=== PATIENT | female | born 1985 | race African-American/Black ===

== ENCOUNTER 2020-09-27 07:05 | Emergency (ER) | payer OTHER, SELFPAY ==
--- NOTE | ~2020-09-27 | US_ITS ---
EXAMINATION: US pelvic complete w TV DATE: 09/27/2020 10:34 INDICATION: Lower abdomen pain and vaginal bleeding for 10 months. Hormone shot.. Comparison:Lower abdominal pain and cramping TECHNIQUE: Multiple transabdominal and endovaginal sonographic images of the pelvis performed. FINDINGS: The uterus measures 10.3 x 5.8 x 3.6 cm. Uterus is retroflexed. There is a small uterine fi broid measuring 2.1 cm. The endometrial complex measures 4 mm. The right ovary measures 3.2 x 1.8 x 2.2 cm and the left ovary measures 3.7 x 1.8 x 1.8 cm. There ar e small follicles in each ovary. Normal doppler signal in both ovaries. There is free fluid in the pelvis, physiologic. There are no abnormal masses seen on either side. IMPRESSION: 1. Small uterine fibroid measuring 2.1 cm. Reviewed, dictated and finalized at location A.
[2020-09-27 07:19] VITALS: BP 138/80; PULSE 86; RESP 18; TEMP 36.2; O2SAT 99
--- NOTE | 2020-09-27 07:21 | ED.GENADULT ---
HPI - General Adult General Chief complaint: Abdominal Pain Stated complaint: Lower ABD Pain Time Seen by Provider: 09/27/20 07:20 Source: patient Mode of arrival: ambulatory Limitations: no limitations History of Present Illness HPI narrative: Patient is a 35-year-old female who presented for evaluation of lower abdominal pain. Pain described as aching, at times sharp in nature. States that the pain began suddenly yesterday. Located in the lower abdomen without radiation to the back. No associated dysuria. Patient reports that she has been on the Depo-Provera injections for control has had monthly spotting/bleeding. Patient states she is currently menstruating. She denies fever, chills, nausea or vomiting. No dysuria or hematuria. She has not taken any medication for the pain. No recent intercourse. No history of sexual transmitted infection. No other vaginal discharge. Denies chest pain or shortness of breath. Related Data Home Medications Medication Instructions Recorded Confirmed No Home Medications 09/27/20 09/27/20 Allergies Allergy/AdvReac Type Severity Reaction Status Date / Time No Known Allergies Allergy Verified 09/27/20 07:40 Review of Systems Review of Systems: Narrative: CONSTITUTIONAL: Denies fever, chills, or sweats. EYES: Denies visual changes, redness, or discharge. ENT: Denies rhinorrhea, congestion, sore throat, or otalgia. CARDIOVASCULAR: Denies chest pain, palpitations, or edema. RESPIRATORY: Denies cough or dyspnea. GASTROINTESTINAL: Reports lower abdominal pain, denies nausea, vomiting, diarrhea or constipation GENITOURINARY: Denies dysuria or hematuria. Reports light vaginal bleeding. SKIN: Denies rash or itching. MUSCULOSKELETAL: Denies back pain, joint pain, or myalgia. NEUROLOGIC: Denies headache, numbness, or weakness. COUNT INCLUDES THE [facility] Social History Social History (Updated 09/27/20 @ 12:24 by Shabana Smith MD) Smoking status: Current every day smoker Tobacco type: cigars Alcohol intake: never Substance use: never Gender identity (if verbalized by the patient): Female Exam Narrative: Exam Narrative: GENERAL: Awake, alert, conversant HEAD: Normocephalic, atraumatic. EYES: PERRLA and EOMI. ENT: Nares clear, no rhinorrhea or epistaxis. Mucous membranes moist. NECK: Supple. CHEST: No respiratory distress, breathing even and non labored HEART: Regular rate, sinus rhythm ABDOMEN:Non distended, mild tender in the right lower quadrant without rebound or guarding, no ecchymoses, no right upper quadrant or epigastric tenderness EXTREMITIES: Normal range of motion. No edema. SKIN: Warm, dry, no rash. NEURO:No focal deficits. Alert and oriented x3 Course Vital Signs Vital signs: Vital Signs Temperature 36.2 C L 09/27/20 07:19 Pulse Rate 86 09/27/20 07:19 Respiratory Rate 18 09/27/20 07:19 Blood Pressure 138/80 09/27/20 07:19 Pulse Oximetry 99 09/27/20 07:19 Temperature 36.2 C L 09/27/20 07:19 Pulse Rate 74 09/27/20 09:22 Respiratory Rate 16 09/27/20 09:22 Blood Pressure 105/68 09/27/20 09:22 Pulse Oximetry 100 09/27/20 09:22 Medical Decision Making MDM Narrative Medical decision making narrative: Patient presenting for evaluation of lower abdominal pain. Patient currently menstruating, the seems to be symptomatic with her menstrual cycles. On exam, patient's abdomen is soft without significant pain or signs of surgical abdomen on serial exams. Lab and imaging evaluations are reviewed and patient is felt to be a reasonable candidate for outpatient management. Patient does have uterine fibroid present. No leukocytosis. No acute kidney injury or electrolyte derangement. No anemia. No urinary tract infection. At this point, given no recurrent pain at the time of assessment, patient declining all pain medications. I did advise patient have JUNIOR ADMINISTRATIVE ASSISTANT follow-up, she may benefit from other contraception given she has not had good resu
[2020-09-27 07:39] LABS: Basophils Percent Auto 0.4 % (0.2-1.2); Eosinophils Percent Auto 0.4 % (0-4.4); Hemoglobin 13.1 g/dL (12.0-15.0); Immature Granulocyte Absolute 0.03 K/mm3 (0.00-0.031); Immature Granulocyte Percent A 0.3 % (0-0.5); Lymphocytes Absolute Auto 2.93 K/mm3 (0.9-3.2); Lymphocytes Percent Auto 27.5 % (18.3-44.2); Mean Corpuscular Hemoglobin 28.5 pg (26-34); Mean Corpuscular Volume 89.3 fl (80-100); Mean Platelet Volume 9.4 fl (7.4-10.4); Monocytes Absolute Auto 0.7 K/mm3 (0.1-0.6); Monocytes Percent Auto 6.2 % (2.6-8.5); Neutrophils Absolute Auto 6.9 K/mm3 (1.3-6.7); Neutrophils Percent Auto 65.2 % (45.5-73.1); Platelet Count Result 223 k/mm3 (150-375); Red Blood Count 4.59 M/mm3 (4.2-5.4); Red Cell Distribution Width 13.1 % (11.5-14.5); White Blood Count 10.6 K/mm3 (4.5-10.0)
[2020-09-27 07:49] LABS: Add Urine Microscopic? YES; Alanine Aminotransferase 11 U/L (4-35); Albumin Level 4.3 g/dL (3.5-5.1); Alkaline Phosphatase 38 U/L (38-126); Anion Gap 9 mmol/L (8-16); Appearance Urine Clear (Clear); Aspartate Amino Transferase 19 U/L (14-36); Bilirubin Urine Negative (Negative); Bilirubin,Total 0.4 mg/dL (0.2-1.3); Blood Urea Nitrogen 8 mg/dL (7-17); Blood Urine 2+ (Negative); Calcium 9.4 mg/dL (8.4-10.2); Carbon Dioxide 25 mmol/L (22-30); Chloride 108 mmol/L (98-107); Color Urine Yellow (Yellow); Estimated CRCL calculation 103 ml/min; Estimated Glomerular Filt Rate > 60; Glucose 81 mg/dL (65-105); Glucose Urine UA Negative (Negative); Ketones Urine Negative (Negative); Leukocyte Esterase Ur Negative LEU/UL (Negative); Lipase 48 U/L (23-300); Mucus Urine Rare /lpf; Nitrate Urine Negative (Negative); Potassium 4.2 mmol/L (3.4-5.0); Protein Urine Negative (Negative); Sodium 142 mmol/L (137-145); Squamous Epithelial Cell Urine Few /hpf (Few); WBC Urine 0-3 /hpf
[2020-09-27 09:22] VITALS: BP 105/68; PULSE 74; RESP 16; O2SAT 100
[2020-09-27] MEDS: SODIUM CHLORIDE 0.9% IV 1,000 ML 999 ML IV CONT (09:30)
[2020-09-27 12:38] VITALS: BP 110/81; PULSE 74; RESP 18; O2SAT 100
--- NOTE | 2020-10-07 14:12 | PC.NURSE ---
LATE ENTRY This note is being entered to document information to the patient's record. The following information was omitted on [10/07/2020], by [Daisy Mario NS stopped on 09/27/20 at 1030 AM. IV acetaminophen stopped at 1004 AM].
== END 2020-09-27 12:39 | disposition home or self-care (01) ==
PROVIDERS: Emergency Provider Emergency Medicine; PCP Physician Assistant
DX: D25.9 Leiomyoma of uterus, unspecified (principal); F17.290 Nicotine dependence, other tobacco product, uncomplicated
CPT/HCPCS: 36415; 76830; 76856; 80053; 81001; 81025; 83690; 85025; 96361; 96374; 99284; J0131; J2270; J2405; J7030

== ENCOUNTER 2022-05-14 06:46 | Emergency (ER) | payer OTHER, SELFPAY ==
[2022-05-14 06:52] VITALS: BP 120/60; PULSE 94; RESP 18; TEMP 37.1; O2SAT 100
--- NOTE | 2022-05-14 07:27 | PC.NURSE ---
patient declined pelvic exam, and requested to stay in her own clothes for her visit.
--- NOTE | 2022-05-14 07:35 | ED.FEMALEGU ---
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 She denies any, nausea, vomiting lightheadedness, dizziness, chest pain or back pain. Last vaginal sexual activity over 3 years ago. History of fibroid tumor. Related Data Home Medications Medication Instructions Recorded Confirmed No Home Medications 09/27/20 09/27/20 Allergies Allergy/AdvReac Type Severity Reaction Status Date / Time No Known Allergies Allergy Verified 09/27/20 07:40 Review of Systems Review of Systems: All systems reviewed & are unremarkable except as noted in HPI and below PMFSH Social History Social History Smoking status: Current every day smoker Tobacco type: cigars Alcohol intake: never Substance use: never Gender identity (if verbalized by the patient): Female Exam Narrative: General appearance: Well-developed, well-nourished Skin: Normal color Head: Normocephalic, nontraumatic Eyes: Clear conjunctiva ENT: Oropharynx normal, ears normal, nose normal Neck: Supple, nontender Chest and respiratory: Airway patent, no respiratory distress, no accessory muscle use Heart: Regular rate/rhythm Abdomen: Soft, nontender, no organomegaly, quiet bowel sounds Vascular: Normal peripheral pulses, normal capillary refill. Musculoskeletal: Normal range of motion, nontender back Neurologic: Alert and oriented ?3, FIELD CANE SCALER is normal as tested, no gross motor deficit Course Vital Signs Vital signs: Vital Signs Temperature 37.1 C 05/14/22 06:52 Pulse Rate 94 05/14/22 06:52 Respiratory Rate 18 05/14/22 06:52 Blood Pressure 120/60 05/14/22 06:52 Pulse Oximetry 100 05/14/22 06:52 Oxygen Delivery Room Air 05/14/22 06:52 Temperature 37.1 C 05/14/22 06:52 Pulse Rate 94 05/14/22 06:52 Respiratory Rate 18 05/14/22 06:52 Blood Pressure 120/60 05/14/22 06:52 Pulse Oximetry 100 05/14/22 06:52 Oxygen Delivery Room Air 05/14/22 06:52 MDM - Female Genitourinary MDM Narrative Medical decision making narrative: Patient is 36 years old -[place] female presents with intermittent vaginal bleeding over the last few months, was seen by her WOOD MILLING MACHINE OPERATOR 10 days ago for the same problem, had pelvic exam and was diagnosed of uterine fibroid tumor.. Patient feels like she does not want to go to work today, complaining of intermittent cramps, and scant vaginal bleeding. Physical examination is unremarkable, patient declined pelvic examination. Labs, urine analysis ordered. Blood work-up showed hemoglobin of 13.5 compared to 13.02 September 2020 urine analysis showed hematuria consistent with her vaginal bleeding. Patient was advised to take today off, encourage fluid intake, and to follow-up with her WOOD MILLING MACHINE OPERATOR in 3 days. Patient agreed. The pt was discharged to home.the pt,s condition upon discharge was fair,education was provided to the pt in reference to the final impression,discharge study results,treatment,prognosis and need for follow up . Differential Diagnosis Differential diagnosis: Likely other (Fibroid tumor) Critical Care Time Critical Care Time Critical Care Time: Yes Total Critical Care Time: 20 Discharge Plan Discharge Clinical Impress
[2022-05-14 08:24] LABS: Basophils Percent Auto 0.4 % (0.2-1.2); Eosinophils Absolute Auto 0.1 K/mm3 (0-0.3); Eosinophils Percent Auto 0.6 % (0-4.4); Hematocrit 41.1 % (37.0-47.0); Hemoglobin 13.5 g/dL (12.0-15.0); Immature Granulocyte Absolute 0.02 K/mm3 (0.00-0.031); Immature Granulocyte Percent A 0.2 % (0-0.5); Lymphocytes Absolute Auto 2.31 K/mm3 (0.9-3.2); Lymphocytes Percent Auto 28.1 % (18.3-44.2); Mean Corpuscular HGB Conc 32.8 g/dl (32-36); Mean Corpuscular Hemoglobin 29.5 pg (26-34); Mean Corpuscular Volume 89.7 fl (80-100); Mean Platelet Volume 9.3 fl (7.4-10.4); Monocytes Absolute Auto 0.6 K/mm3 (0.1-0.6); Monocytes Percent Auto 6.8 % (2.6-8.5); Neutrophils Absolute Auto 5.3 K/mm3 (1.3-6.7); Neutrophils Percent Auto 63.9 % (45.5-73.1); Platelet Count Result 224 k/mm3 (150-375); Red Blood Count 4.58 M/mm3 (4.2-5.4); White Blood Count 8.2 K/mm3 (4.5-10.0)
[2022-05-14 08:25] LABS: Appearance Urine Slightly Cloudy (Clear); Bilirubin Urine 1+ (Negative); Blood Urine 3+ (Negative); Color Urine Yellow (Yellow); Glucose Urine UA Negative (Negative); Ketones Urine Negative (Negative); Leukocyte Esterase Ur Negative LEU/UL (Negative); Nitrate Urine Negative (Negative); Protein Urine 1+ mg/dL (Negative); Specific Grav Ur 1.025 (1.001-1.035)
[2022-05-14 08:32] LABS: Bacteria Urine Trace /hpf; Mucus Urine Rare /lpf; RBC Urine 51-75 /hpf (0-2); Squamous Epithelial Cell Urine Many /hpf (Few)
[2022-05-14 08:33] LABS: Alanine Aminotransferase 20 U/L (6-35); Albumin Level 4.1 g/dL (3.5-5.1); Alkaline Phosphatase 42 U/L (38-126); Anion Gap 3 mmol/L (8-16); Aspartate Amino Transferase 21 U/L (14-36); Bilirubin,Total 0.4 mg/dL (0.2-1.3); Blood Urea Nitrogen 9 mg/dL (7-17); Carbon Dioxide 30 mmol/L (22-30); Chloride 102 mmol/L (98-107); Estimated CRCL calculation 89 ml/min; Estimated Glomerular Filt Rate > 60; Glucose 99 mg/dL (65-110); Potassium 3.8 mmol/L (3.4-5.0); Sodium 135 mmol/L (137-145)
[2022-05-14 08:40] LABS: Add Urine Microscopic? YES
--- NOTE | 2022-05-14 08:51 | PC.NURSE ---
pt denies need for pelvic exam. states just had one and was diagnosed with bacterial infection from perfumes. states will follow up with inbound sales representative
== END 2022-05-14 09:43 | disposition home or self-care (01) ==
PROVIDERS: Emergency Provider Emergency Medicine; PCP Physician Assistant
DX: N93.8 Other specified abnormal uterine and vaginal bleeding (principal); F17.290 Nicotine dependence, other tobacco product, uncomplicated; D25.9 Leiomyoma of uterus, unspecified
CPT/HCPCS: 36415; 80053; 81001; 81025; 85025; 99283

== ENCOUNTER 2024-09-07 12:23 | Outpatient (CLI) | payer OTHER, SELFPAY ==
--- NOTE | ~2024-09-07 | MMUS_ITS ---
Examination: MM diagnostic KELSEY LT W talha and US breast LT limited INDICATION: 38-year old female; with area of left breast periareolar thickening from 6:00 to 12:00 x days patient has been on antibiotic for 2 days which seems to be helping. COMPARISON: None available TECHNIQUE: Digital breast tomosynthesis True lateral CC and MLO views of the LEFT breast were obtaine d with computer-aided detection to assist in interpretation of the study. FINDINGS: The breasts are heterogeneously dense, which may obscure small masses. Is focal skin thickening in the inferior medial involving the areolar region. Ultrasound was performe d for further evaluation. A calcified mass containing coarse calcifications located in the superior l ateral at anterior to medial depth is compatible with a degenerated degenerative fibroadenoma. Biopsy clip is noted in the left breast. LEFT BREAST ULTRASOUND FINDINGS: Targeted evaluation of the area of concern was completed. The examination demonstrates focal skin thi ckening at 7:00 to 8:00 and which contains small fluid collection in subdermal location that measure 3.4 x 0.9 cm. There is increased vascularity of the surrounding areas. These findings compatible with an abscess cavity correlates to the mammographic and clinical finding. IMPRESSION: 1. Left breast subdermal abscess cavity at 7:00 to 8:00 location correlates to the clinical and imagi ng findings. This finding is mostly phlegmon with no significant amount of drainable fluid. 2. No mammographic evidence of malignancy within the left breast. RECOMMENDATION: Clinical management to complete resolution. BI-RADS 2, BENIGN Reviewed, dictated and finalized at location B. IMPRESSION: 1. Left breast subdermal abscess cavity at 7:00 to 8:00 location correlates to the clinical and imaging findings. This finding is mostly phlegmon with no sign ificant amount of drainable fluid. 2. No mammographic evidence of malignancy within the left breast. RECOMMENDATION: Clinical management to complete resolution. BI-RADS 2, BENIGN
--- OUTSIDE RECORDS SUMMARY | 2024-09-07 12:26 | XMS_ITS | Clinical Summary ---
Author Organization [facility] Address [address] [place] [address] Care Team Providers Care Wrapper Sorter Name Role Phone Saira Doty PA-C Primary Care Provider [phone] Source Comments [facility],non-owned Affiliates and Associated Physician Practices is amultiple site organization consisting of ambulatory clinics and hospital sitesin [place], [place], [place] and [place]. This disclosure is being madepursuant to the Care Everywhere program and may not contain all informatio navailable regarding this patient. Last updated 17.[facility] Allergies No known active allergies Medications * Be aware that medications may not be up to date on this document. Alwaysverify current medications with the patient. acetaminophen (Tylenol) 325 MG tablet Take 2 (two) tablets by mouth every 6 hours Maximum allowable Acetaminophen amount = 4 Grams (4000 mg) / 24 hours. 4 Active Additional Information Patient not taking.Reported on 01/13/2024 calcium carbonate (Tums) 500 MG chew tabletIndicatio ns:Hypocalcemia Take 5 (five) tablets by mouth 3 times daily with meals for 7 days, THEN 5 (five) tablets 2 times daily with morning and evening meal for 7 days, THEN 5 (five) tablets daily with food for 7 days. Reasons: Low Amount of Calcium in the Blood. 210 tablet 4 Active oxyCODONE, immediate release, (Roxicodone) 5 MG tabletIndicatio ns:Nontoxic goiter, unspecified TAKE ONE TABLET BY MOUTH EVERY 4 HOURS NEEDED 12 tablet 4 Active Additional Information Patient not taking.Reported on 01/13/2024 ibuprofen (Motrin) 600 MG tablet TAKE ONE TABLET BY MOUTH EVERY 6 HOURS 30 tablet 4 025 Active Additional Information Patient not taking.Reported on 01/13/2024 levothyroxine (Synthroid) 112 MCG tablet TAKE ONE TABLET BY MOUTH ONCE DAILY 90 tablet 2 4 025 Active calcium carbonate (Tums) 500 MG chew tablet CHEW 5 TABLETS BY MOUTH 3 TIMES A DAY WITH MEALS FOR 7 DAYS, 5 TABS TWICE A DAY FOR 7 DAYS, THEN 5 TABS ONCE DAILY FOR 7 DAYS 210 tablet 4 025 Active Additional Information Patient not taking.Reported on 01/13/2024 Active Problems Problem Noted Date Diagnosed Date S/P total thyroidectomy 11/03/2023 Goiter 02/04/2023 Immunizations Immunization Administration Dates Next Due DTP, HISTORIC VACCINE 12/20/1992, 990,08/13/1988,1988,1987 HEP A VACCINE, ADULT 06/20/2009 INFLUENZA VACCINE 01/02/2022,01/03/2020 INFLUENZA VACCINE, QUADR. (F LUZONE; FLULAVAL; FLUARIX; AFLURIA QUADRIVALENT; 6MO+), 0.5 ML (IIV4) 01/26/2023 MEASLES 02/02/1993 MMR VACCINE 01/24/1989 MUMPS 10/26/1994 POLIO OPV 12/20/1992, 0,08/13/1988,1988,1987 Social History Tobacco Use Types Packs/Day Years Used Date Smoking Tobacco: Every Day Cigars Smokeless Tobacco: Never Tobacco Cessation:Ready to Q uit: Not Asked; Counseling Given: Not Answered Comments:2 per day Alcohol Use Standard Drinks/Week Comments Not Currently 0 (1 standard drink = 0.6 oz pur e alcohol) occasionally AUDIT-C Answer Date Recorded Q1: How often do you have a drink containing alcohol? Never 11/03/2023 Q2: How many drinks containi ng alcohol do you have on a typical day when you are drinking? Patient does not drink Q3: How often do you have si x or more drinks on one occasion? 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 Gender Identity Not on file Sexual Orientation Not on file Last Filed Vital Signs Vital Sign Reading Time Taken Comments Blood Pressure 111/77 01/13/2024 9:02 AM CDT Pulse 90 01/13/2024 9:02 AM CDT Temperature 36.8 C (98.2 F) 11/04/2023 11:38 AM CDT Respiratory Rate 16 11/04/2023 11:38 AM CDT Oxygen Saturation 100% 11/04/2023 11:38 AM CDT Inhaled Oxygen Concentration - - Weight 68.5 kg (151 lb) 01/13/2024 9:02 AM CDT Height 157.5 cm (5' 2) 01/13/2024 9:02 AM CDT Body Mass Index 27.62 01/13/2024 9:02 AM CDT Plan of Treatment Health Maintenance Due Date Last Done Comments PAP SMEAR 1987 DTAP/TDAP/TD VACCINES (6 - Tdap) 09/11/1998 12/20/1992, 07/25/1989, 08/13/1988, Additional history exists HIV SCREENING 09/11/2002 HEPATITIS C SCREENING 09/07/2005 HEPATITIS B VACCINE (1 of 3 - 19+ 3-dose series) 09/11/2006 PNEUMOCOCCAL VACCINE (1 of 2 - PCV) 09/11/2006 COVID-19 VACCINE (3 - season) 2023 11/27/2020, 10/28/2020 DEPRESSION SCREENING 04/04/2024 INFLUENZA VACCINE (Season Ended) 2024 01/26/2023, 01/02/2022, 01/03/2020 ZOSTER VACCINE (1 of 2) 09/11/2037 HIB VACCINE Aged Out No longer eligi ble based on patient's age to complete this topic HPV VACCINE Aged Out No longer eligi ble based on patient's age to complete this topic MENINGOCOCCAL (Group B) VACCINE SHARED DECISION-MAKING Aged Out No longer eligible based on patient's age to complete this topic MENINGOCOCCAL GROUPS A/C/Y/W VACCINE Aged Out No longer eligible based on patient's age to complete this topic Insurance [facility] Advance Directives * Full Code (Latest Code Status on File) Date Activated Date Inactivated Comments 11/03/2023 10:50 AM 11/04/2023 7:10 PM Care Teams Wrapper Sorter Relationship Specialty Start Date End Date Saira Doty PA-C [address] [place] [phone] PCP - General Physician Assistance Specialist 10/14/23
--- OUTSIDE RECORDS SUMMARY | 2024-09-07 12:26 | XMS_ITS | Encounter Summary ---
Author Organization [facility] Healthcare Address [address] [place] [address] Care Team Providers Care Apple Sorter Name Role Phone Saira Doty Primary Care Provider [phone] Wai Ozuna MD Unavailable [phone] Encounter Details Date Type Department Care Team (Late st Contact Info) Description 10/19/2023 Orders Only [facility] Health Information Management [address] [place] [id number] Scanning, Provider Social History Tobacco Use Types Packs/Day Years Used Date Smoking Tobacco: Every Day Smokeless Tobacco: Never Alcohol Use Standard Drinks/Week Comments Yes 0 (1 standard drink = 0.6 oz pur e alcohol) PHQ-2 Answer Date Recorded PHQ-2 Total Score (If total score is 3 or more points, staff should administer the PHQ-9) 0 08/27/2020 Comments No Sex and Gender Information Value Date Recorded Sex Assigned at Not on file 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 Gender Identity Not on file Sexual Orientation Not on file 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 Not on file Not on file documented as of this encounter Plan of Treatment Not on file documented as of this encounter Procedures Procedure Name Priority Date/Time Associated Diagnosis Comments SCAN - LABS 10/19/2023 9:20 PM CDT SCAN - LABS 10/19/2023 9:20 PM CDT SCAN - LABS 10/19/2023 9:20 PM CDT SCAN - LABS 10/19/2023 9:20 PM CDT documented in this encounter Results * SCAN - LABS (10/19/2023 9:20 PM CDT) us Provider Scanning Final Result * SCAN - LABS (10/19/2023 9:20 PM CDT) us Provider Scanning Final Result * SCAN - LABS (10/19/2023 9:20 PM CDT) us Provider Scanning Final Result * SCAN - LABS (10/19/2023 9:20 PM CDT) us Provider Scanning Final Result documented in this encounter Visit Diagnoses Not on filedocumented in this encounter Care Teams Apple Sorter Relationship Specialty Start Date End Date Saira Doty PA [address] [place] [address] PCP - General Internal Medicine 07/17/19 Wai Ozuna MD [address] [place] [address] 07/17/19 documented as of this encounter
--- OUTSIDE RECORDS SUMMARY | 2024-09-07 12:26 | XMS_ITS | Clinical Summary ---
Author Organization [facility] [address] [facility] Address [address] [place] [address] Care Team Providers Care Superintendent Maintenance Name Role Phone Saira Doty Primary Care Provider [phone] Wai Ozuna MD Unavailable [phone] Allergies No known active allergies Medications ergocalciferol (VITAMIN D) 50,000 unit capsuleIndications: Vitamin D deficiency Take 1 capsule (50,000 Units total) by mouth once a week 4 capsule 11 4 03/20/20 25 Active levothyroxine (SYNTHROID) 125 mcg tabletIndications:P ostoperative hypothyroidism Take 1 tablet (125 mcg total) by mouth daily 90 tablet 5 Active Active Problems Problem Noted Date Diagnosed Date Screening examination for ST D (sexually transmitted disease) 08/05/2024 Obesity (BMI 30-39.9) 07/26/2024 Assessment & Plan (07/26/2024 7:30 AM CDT): Discussed the patients BMI: The BMI is above average BMI management is complete. BMI follow-up includes: Nutrition Counseling and education provided Postoperative hypothyroidism 01/20/2024 Assessment & Plan (01/20/2024 8:21 PM CDT): Patient is status post thyroidectomy in November of 2023. Continue levothyroxine. Was removed at [facility] by Dr. Bladimir camp. Plans to follow here for management of the labs. Plan to repeat TSH in the next few months for stability Diabetes mellitus screening 01/20/2024 Assessment & Plan (01/20/2024 8:23 PM CDT): Check labs Lipid screening 01/20/2024 Assessment & Plan (01/20/2024 8:23 PM CDT): Check labs Fatigue 01/20/2024 Assessment & Plan (01/20/2024 8:23 PM CDT): Probably multifactorial. Check labs and followup to re-evaluate Breast cancer screening by mammogram 01/20/2024 Assessment & Plan (01/20/2024 8:23 PM CDT): Mammogram order provided Fibrocystic disease of breast 08/25/2020 control counseling 06/09/2020 Assessment & Plan (01/20/2024 8:22 PM CDT): Patient has discontinued the Depo-Provera. States cycles are regular. Using abstinence for control Assessment & Plan (08/24/2021 1:51 AM CDT): Patient currently is not on any type of control. States she has not sexually active for 2 years and therefore does not need actual control. Was using Depo-Provera for cycle regulation. Last injection was in November. She started her 1st. Since the end of coverage on 08/11 and has have it heavier. Than what she is use to. She is not saturating a pad an hour so just need to monitor. If she begins to saturate a pad an hour she is to follow up for further intervention. Patient voices understanding. May try NSAID to see if this helps decrease the bleeding. Assessment & Plan (06/18/2021 10:03 PM CDT): Patient is anxious and states she does not need control but she likes to be on control but she isn't sexually active but she wants regular periods. Discussed at length that we need to 1st determine why she isn't having. And then can further discuss control/min see regulation options. Assessment & Plan (08/27/2020 8:16 AM CDT): She was offered alternative forms of control and declined to change at this time, wants to receive the depoprovera injection today. She will f/u with pcp in 3mo to discuss further alternatives. She refuses the urine hcg today prior to receiving the depoprovera. Fibroadenoma of right breast 03/14/2020 Assessment & Plan (06/09/2020 8:06 PM GUIDE TOUR): Pathology shows benign changes. She has followup with Dr. Weiss to review further Assessment & Plan (03/14/2020 5:00 PM GUIDE TOUR): Referred to Dr Weiss to discuss the multiple problable fibroadenomas. She has multiple masses and is always worried about her medical concerns so I want her to discuss options. Cigarette smoker 03/13/2020 Assessment & Plan (03/13/2022 7:21 PM GUIDE TOUR): Encouraged smoking cessation. Discussed 3 minutes. Reviewed options for assistance with cessation. Reviewed machine long goods helper sequela associated with smoking. Pt declines assistance at this time but may contact the office at anytime for further help as they desire. Assessment & Plan (08/24/2021 1:50 AM CDT): Encouraged smoking cessation. Discussed 3 minutes. Reviewed options for assistance with cessation. Reviewed custodial sequela associated with smoking. Pt declines assistance at this time but may contact the office at anytime for further help as they desire. Assessment & Plan (06/18/2021 10:02 PM CDT): Encouraged smoking cessation. Discussed 3 minutes. Reviewed options for assistance with cessation. Reviewed custodial sequela associated with smoking. Pt declines assistance at this time but may contact the office at anytime for further help as they desire. Reviewed risk of OCP that her estrogen based with smokers over 35. Assessment & Plan (12/01/2020 8:42 AM CDT): Encouraged smoking cessation. Discussed 3 minutes. Reviewed options for assistance with cessation. Reviewed custodial sequela associated with smoking. Pt declines assistance at this time but may contact the office at anytime for further help as they desire. Assessment & Plan (08/27/2020 8:17 AM CDT): Advised smoking cessation, she declines aid Assessment & Plan (06/09/2020 8:07 PM GUIDE TOUR): Encouraged smoking cessation. Discussed 3 minutes. Reviewed options for assistance with cessation. Reviewed machine long goods helper sequela associated with smoking. Pt declines assistance at this time but may contact the office at anytime for further help as they desire. Assessment & Plan (03/14/2020 4:58 PM GUIDE TOUR): Encouraged smoking cessation. Discussed 3 minutes. Reviewed options for assistance with cessation. Reviewed machine long goods helper sequela associated with smoking. Pt declines assistance at this time but may contact the office at anytime for further help as they desire. Anxiety 11/29/2019 Assessment & Plan (01/20/2024 8:22 PM CDT): Anxiety symptoms have improved with removal of the nodular thyroid. She states she is feeling good without medication currently. Continue to monitor Assessment & Plan (03/13/2022 7:21 PM GUIDE TOUR): Patient has significant anxiety but prefers to not use any medication. May call at any time if changes her mind. Assessment & Plan (12/01/2020 8:42 AM CDT): Patient is still anxious about her medical concerns. She doesn't want medication Assessment & Plan (03/14/2020 4:58 PM GUIDE TOUR): Discussed again starting an anxiety medication due to her heightened worry about her medical concerns. She again declines. Assessment & Plan (11/29/2019 8:04 AM CDT): Patient has obvious anxiety. This has been evident with the thyroid workup and the breast mass workup. She demands to have immediate results available due to anxiety attacks when she has to wait. Admits this carries over into relationships into her job into warning about her kids and this has been this way for ever. Recommend considering starting SSRI to help with this anxiety but she is worried about starting the medicine. She will consider and will discuss again in March she decides she wants to started earlier she may call the office. Abnormal mammogram 11/18/2019 Assessment & Plan (11/29/2019 8:03 AM CDT): Due to repeat (B) diag mamm and (B) diag US in 02/2020. She has orders. She is to f.u in 03/2020 to review. She is very anxious just discussing this. Reviewed these appear to be fibroadenomas so encouraged to stop caffeine and start VitD or evening primrose oil. Multiple thyroid nodules 08/22/2019 Assessment & Plan (03/13/2022 7:20 PM GUIDE TOUR): Continue per Dr. Damon for management of her thyroid. Assessment & Plan (08/24/2021 1:50 AM CDT): Continue per Dr. Damon for management of the thyroid levels and nodules. Assessment & Plan (12/01/2020 8:40 AM CDT): Continue per Dr. Damon Assessment & Plan (11/29/2019 8:01 AM CDT): Continue per Dr. Cameron. Due for repeat US thyroid in October 2020. She states she has appt scheduled with him for followup Assessment & Plan (10/23/2019 12:48 PM CDT): Status-post US-guided FNA left superior thyroid nodule (see procedure note) Plan: 1) Awaiting cytology results 2) Plan follow-up with primary Bioanalyst (Dr. Damon) Vitamin D deficiency 08/22/2019 Assessment & Plan (04/02/2024 4:49 PM GUIDE TOUR): Supplement Assessment & Plan (01/20/2024 8:22 PM CDT): Supplement Assessment & Plan (03/13/2022 7:20 PM GUIDE TOUR): Supplement Assessment & Plan (03/14/2020 4:54 PM GUIDE TOUR): Encouraged calcium and vitamin D Assessment & Plan (11/29/2019 8:00 AM CDT): Encouraged supplement. Pt felt like it made her sick. Encouraged to take with food. Enlarged thyroid gland 01/22/2016 Overview (08/25/2020): Right greater than left Assessment & Plan (07/23/2019 9:26 PM CDT): Check labs. Check thyroid US. Pt is worried to the point of panic so will order the US to be done urgently during COVID. Resolved Problems Problem Noted Date Diagnosed Date Resolved Date Hematuria 03/26/2024 08/05/2024 Assessment & Plan (04/02/2024 4:49 PM GUIDE TOUR): Patient complains of suprapubic cramps. She does have a little bit of blood in her urine. She is unsure if she is getting ready to start her period or if this could be a bladder infection. With his coming upon a holiday am going to go ahead and send out Macrobid 100 mg b.i.d. x5 days. Will send the urine for culture to confirm. If her symptoms worsen or do not resolve she will need follow-up. If there isn't infection and she has not started her. May need to workup the hematuria. Patient is in agreement with the plan Annual physical exam 03/13/2022 025 Assessment & Plan (01/20/2024 8:22 PM CDT): Encouraged healthy lifestyle, good nutrition and exercise. Encouraged Calcium and Vitamin D and weight bearing exercise for bone health. Reviewed immunizations Reviewed age appropirate screenings. Assessment & Plan (03/13/2022 7:21 PM GUIDE TOUR): Encouraged healthy lifestyle, good nutrition and exercise. Encouraged Calcium and Vitamin D and weight bearing exercise for bone health. Reviewed immunizations Reviewed age appropirate screenings. BMI 28.0-28.9,adult 03/03/2022 07/27/19 25 Assessment & Plan (03/26/2024 2:00 PM GUIDE TOUR): Discussed the patient's BMI. The BMI is above average. BMI management plan is completed. BMI Follow-up includes: nutrition counseling, exercise counseling and education provided. Assessment & Plan (01/20/2024 8:22 PM CDT): Weight/BMI is in healthy range. Continue healthy lifestyle to maintain. Assessment & Plan (03/03/2022 1:38 PM GUIDE TOUR): Weight/BMI is in healthy range. Continue healthy lifestyle to maintain. Encounter for routine gyneco logical examination with Papanicolaou smear of cervix 11/17/2021 01/20/2024 Annual physical exam 08/24/2021 022 Assessment & Plan (08/24/2021 1:51 AM CDT): Encouraged healthy lifestyle, good nutrition and exercise. Encouraged Calcium and Vitamin D and weight bearing exercise for bone health. Reviewed immunizations Reviewed age appropirate screenings. BMI 25.0-25.9,adult 08/18/2021 03/03/20 22 Assessment & Plan (08/18/2021 7:30 AM CDT): Weight/BMI is in healthy range. Continue healthy lifestyle to maintain. BMI 25.0-25.9,adult 06/18/2021 08/19/19 Assessment & Plan (06/18/2021 8:36 AM CDT): Weight/BMI is in healthy range. Continue healthy lifestyle to maintain. Amenorrhea 06/18/2021 08/18/2021 Assessment & Plan (06/18/2021 10:04 PM CDT): Patient has been amenorrheic since mid March. She is at about 3 months without a cycle. Prior to that she has bled almost every day well on Depo-Provera. She admits she does have increased hair growth in place she does not want at as well as she feels as though she is having increased weight gain. She has not had labs in 2 years. Will go ahead and workup in menorrhea and follow-up pending these results. test in the office was negative. Patient has significant anxiety especially around her health care concerns. Offered referral to public health representative so that she can speak with specialist about her concerns. She states will go ahead and get labs and follow-up pending those results. BMI 25.0-25.9,adult 12/01/2020 06/19/19 22 Assessment & Plan (12/01/2020 8:06 AM CDT): Weight/BMI is in healthy range. Continue healthy lifestyle to maintain. BMI 25.0-25.9,adult 08/27/2020 12/02/19 21 Assessment & Plan (08/27/2020 7:55 AM CDT): Weight/BMI is in healthy range. Continue healthy lifestyle to maintain. Acute pelvic inflammatory disease 08/25/2020 06/18/2021 Mastitis in female 08/25/2020 4 BMI 24.0-24.9, adult 06/09/2020 021 Assessment & Plan (06/09/2020 1:30 PM GUIDE TOUR): Weight/BMI is in healthy range. Continue healthy lifestyle to maintain. BMI 25.0-25.9,adult 03/13/2020 06/10/19 21 Assessment & Plan (03/13/2020 8:54 AM GUIDE TOUR): Weight/BMI is in healthy range. Continue healthy lifestyle to maintain. Encounter for management and injection of depo-Provera 12/14/2019 06/18/2021 Assessment & Plan (12/01/2020 8:41 AM CDT): Injected today. Still spotting, but ok with this side effect Assessment & Plan (06/09/2020 8:07 PM GUIDE TOUR): Depo given in office with office supply. Next one due: August 25 - Assessment & Plan (03/14/2020 4:59 PM GUIDE TOUR): Depo injected today. Next injection due 05/29 - 06/12 Encouraged Calcium due to black box warning. Assessment & Plan (12/14/2019 11:25 PM CDT): UPT negative. DepoProvera injected today with office supply F.u 12 weeks to next injection. Reviewed black david warning. Encouraged calcium Cigarette smoker 11/29/2019 03/13/2020 Assessment & Plan (11/29/2019 8:03 AM CDT): Encouraged smoking cessation. Discussed 3 minutes. Reviewed options for assistance with cessation. Reviewed custodial sequela associated with smoking. Pt declines assistance at this time but may contact the office at anytime for further help as they desire. control counseling 11/29/201902/2020 Assessment & Plan (11/29/2019 8:06 AM CDT): Patient only occasionally uses condoms she does not desire . Encouraged her to consider control to prevent . She has used Depo in the past is considering it but is w orried about restarting it because she is h urt bad things about it reviewed risk benefits alternatives and proper use. Reviewed other control options. She states she will consider. Encouraged condoms until she is able to be on at consistent control. Annual physical exam 11/18/2019 022 Assessment & Plan (12/01/2020 8:42 AM CDT): Encouraged healthy lifestyle, good nutrition and exercise. Encouraged Calcium and Vitamin D and weight bearing exercise for bone health. Reviewed immunizations Reviewed age appropirate screenings. Assessment & Plan (11/29/2019 8:01 AM CDT): Encouraged healthy lifestyle, good nutrition and exercise. Encouraged Calcium and Vitamin D and weight bearing exercise for bone health. Reviewed immunizations Reviewed age appropirate screenings. Mass of upper outer quadrant of left breast 08/24/2019 11/28/2019 Assessment & Plan (08/24/2019 3:50 PM CDT): Diagnostic mammogram and ultrasound left breast now (made arrangements for her to have it done across the [facility] after visit today). Will give additional instructions after test. Diabetes mellitus screening 07/23/2019 11/28/2019 Assessment & Plan (07/23/2019 9:26 PM CDT): Check labs Lipid screening 07/23/2019 11/28/2019 Assessment & Plan (07/23/2019 9:26 PM CDT): Check labs Other fatigue 07/23/2019 11/28/2019 Assessment & Plan (07/23/2019 9:26 PM CDT): Probably multifactorial. Check labs and followup to re-evaluate Breast lump 01/22/2016 08/05/2024 Encounters Date Type Department Care Team Description 08/07/[address] [place] [phone] Saira Doty PA 08/06/2024 Orders Only [address] [place] [phone] Saira Doty PA Postoperative hypothyroidism (Primary Dx) 08/06/[address] [place] [phone] Saira Doty PA Test Results 08/04/2024 Results Follow-Up [address] [place] [phone] Saira Doty PA CBC with auto differential, Comprehensive metabolic panel, Hemoglobin A1c, Additional followed-up results: 9 08/03/2024 8:45 AM CDT Lab [facility] at [address] [phone] 08/03/2024 8:44 AM CDT - 08/03/2024 11:59 PM CDT Hospital Encounter [address] [address] Fatigue, unspecified type; Diabetes mellitus screening; Lipid screening; Vitamin D deficiency; Postoperative hypothyroidism; Screening examination for STD (sexually transmitted disease) Discharge Disposition: Discharge to home or self care 07/26/2024 7:30 AM CDT Office Visit [facility] [address] [facility] [address] [place] [address] Saira Doty PA Postoperative hypothyroidism (Primary Dx); Vitamin D deficiency; Lipid screening; Diabetes mellitus screening; Fatigue, unspecified type; control counseling; Screening examination for STD (sexually transmitted disease); Cigarette smoker; BMI 30.0-30.9,adult; Obesity (BMI 30-39.9) from Last 3 Months Immunizations Immunization Administration Dates Next Due DTP 12/20/1992, 0,08/13/1988,04/16,1987 Hep A, Adult 06/20/2009 Influenza, Quadrivalent, Spl it, Preservative Free, Intramuscular 01/26/2023 Influenza, Unspecified 01/27/2024,2021,04/04/2021(Defer red: Patient Refused),01/03/2020 MMR 01/24/1989 Measles 02/02/1993 Moderna SARS-CoV-2 Monovalen t Vaccination (12+ YRS) 11/27/2020,10/28/2020 Mumps 10/26/1994 OPV 12/20/1992, 0,08/13/1988,04/16,1987 Surgical History Surgery Date Site/Laterality Comments BREAST BIOPSY 05/06/2020 Bilateral THYROID SURGERY Medical History Medical History Date Comments Thyroid nodule 2019 Family History Medical History Relation Name Comments Diabetes Mother Stroke Mother Thyroid disease Mother Relation Name Status Comments Mother Social History Tobacco Use Types Packs/Day Years Used Date Smoking Tobacco: Every Day Smokeless Tobacco: Never Tobacco Cessation:Ready to Q uit: No; Counseling Given: No Alcohol Use Standard Drinks/Week Comments Yes 0 (1 standard drink = 0.6 oz pur e alcohol) AUDIT-C Answer Date Recorded Q1: How often do you have a drink containing alcohol? Never 03/26/2024 Q2: How many drinks containi ng alcohol do you have on a typical day when you are drinking? Patient does not drink Q3: How often do you have si x or more drinks on one occasion? 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 Not on file Not on file Obstetrics History Para Term AB IAB SAB Ectopic Multiple Livin g Live Births 1 1 Date Outcome GA Total Labor Labor/2nd/3rd Weight Sex Type Anes PTL Renata A1 A5 Name Clin Term Last Filed Vital Signs Vital Sign Reading Time Taken Comments Blood Pressure 110/60 07/26/2024 7:24 AM CDT Pulse 84 07/26/2024 7:24 AM CDT Temperature 36.7 C (98.1 F) 07/26/2024 7:24 AM CDT Respiratory Rate 14 01/13/2024 11:02 AM CDT Oxygen Saturation 99% 07/26/2024 7:24 AM CDT Inhaled Oxygen Concentration - - Weight 70.8 kg (156 lb) 07/26/2024 7:24 AM CDT Height 152.4 cm (5') 07/26/2024 7:24 AM CDT Body Mass Index 30.47 07/26/2024 7:24 AM CDT Plan of Treatment Health Maintenance Due Date Last Done Comments DTaP/Tdap/Td Vaccine (6 - Tdap) 09/11/1998 12/20/1992, 07/25/1989, 08/13/1988, Additional history exists Varicella Vaccines (1 of 2 - 13+ 2-dose series) 09/11/2000 Hepatitis B Screening 09/11/2005 Pneumococcal vaccine <65 (1 of 2 - PCV) 09/11/2006 Cervical Cancer Screening 01/21/2017 01/22/2016 Covid-19 Vaccine ( season) 2023 11/27/2020, 10/28/2020 Regular Well Visit/Exam 18-64 01/12/2025 01/13/2024, 03/03/2022, 08/18/2021, Additional history exists Breast Cancer Screening-Mammogram 05/16/2025 05/16/2024, 05/03/2023, 02/29/2020, Additional history exists Depression Screening 07/26/2025 07/26/2024, 03/26/2024, 01/13/2024, Additional history exists Influenza Vaccine Completed 01/27/2024, , 01/02/2022, Additional history exists Hepatitis C Screening Completed 08/03/2024 HPV Vaccines Aged Out No longer eligi ble based on patient's age to complete this topic Procedures Procedure Name Priority Date/Time Associated Diagnosis Comments EGFR Routine 08/03/2024 8:44 AM CDT Fatigue, unspecified type DIFFERENTIAL AUTO Routine 08/03/2024 8:4 4 AM CDT Fatigue, unspecified type TSH Routine 08/03/2024 8:44 AM CDT Postoperative hypothyroidism VITAMIN D 25 HYDROXY Routine 08/03/2024 8:44 AM CDT Vitamin D deficiency VITAMIN B12 Routine 08/03/2024 8:44 AM CDT Fatigue, unspecified type LIPID PANEL Routine 08/03/2024 8:44 AM CDT Lipid screening HEMOGLOBIN A1C Routine 08/03/2024 8:44 AM CDT Diabetes mellitus screening COMPREHENSIVE METABOLIC PANEL Routine 08/03/2024 8:44 AM CDT Fatigue, unspecified type CBC WITH AUTO DIFFERENTIAL Routine 08/03/2024 8:44 AM CDT Fatigue, unspecified type N. GONORRHOEAE/C. TRACHOMATIS AMPLIFICATION Routine 08/03/2024 8:44 AM CDT Screening examination for STD (sexually transmitted disease) HIV 1/2 ANTIBODY PLUS P24 ANTIGEN Routine 08/03/2024 8:44 AM CDT Screening examination for STD (sexually transmitted disease) RPR Routine 08/03/2024 8:44 AM CDT Screening examination for STD (sexually transmitted disease) HEPATITIS PANEL, ACUTE Routine 08/03/2024 8:44 AM CDT Screening examination for STD (sexually transmitted disease) SCREENING MAMMOGRAM BILATERAL W SAJAN Schedule Routine, Read Routine (OP Routine) 05/16/2024 12:46 PM GUIDE TOUR Breast cancer screening by mammogram THINPREP IMAGING PAP REFLEX HPV MRNA E6/E7 Routine 01/22/2016 12:38 PM CDT from Last 3 Months or Most Recently Relevant to Health Maintenance Results * N. gonorrhoeae/C. trachomatis Amplification Urine (08/03/2024 8:44 AM CDT) C. trachomatis Not Detected [facility] Comment:Testing performed by : [facility], [address] [place]., [address] N. gonorrhoeae Not Detected [facility] Comment: Interpretive Data This assay detects Chlamydia trachomatis and Neisseria gonorrhoeae by nucleic acid amplification testing (NAAT). This assay has been cleared by the [place] Food and Drug administration. The performance characteristics of this test have been verified by the [facility] Molecular Infectious Disease laboratory. The performance characteristics of this test have not been evaluated in individuals less than 14 years of age. Current Interpretive Data was last revised on 2023. Testing performed by: [facility], [address] [place]., [address] Urine (None) 08/03/2024 8:44 AM CDT 08/04/2024 12:46 AM CDT S[facility] KATE LAB MICROBIOLOGY - GENERAL ORDERABLES Final Result Performing Organization Address [facility] de Phone Number [facility] [id number] Department [place] [address] [facility] * eGFR (08/03/2024 8:44 AM CDT) eGFR >90 >=60 mL/min/1. 73 m2 Comment: Interpretive Data Reference Interval Normal >/= 90 mL/min/1.73m2 Mildly decreased* 60 - 89 mL/min/1.73m2 Mildly to moderately decreased 45 - 59 mL/min/1.73m2 Moderately to severely decreased 30 - 44 mL/min/1.73m2 Severely decreased 15 - 29 mL/min/1.73m2 Kidney Failure < 15 mL/min/1.73m2 *Relative to young adult level Estimated glomerular filtration rate is determined by the 2020 CKD-EPI equation recommended by the National Kidney Foundation (A Unifying Approach to GFR Estimation: Recommendations of the NKF-ASK Task Force on Reassessing the Inclusion of Race in Diagnosing Kidney Disease, JASN 2020). The CKD-EPI equation should not be used for patients with unstable renal function and has not been validated in children and those over 70. Current interpretive data was last reviewed 2021. Blood 08/03/2024 8:44 AM CDT 08/03/2024 7:49 PM CDT S[facility] LAB BLOOD ORDERABLES Final Result Performing Organization Address [facility] [facility] Co de Phone Number CHAO BERTRAND [address] Department [place] [address] * (ABNORMAL) Differential, auto (08/03/2024 8:44 AM CDT) Neutrophil abs 5.97 1.50 - 6.50 K/cumm Imm gran abs 0.03 0.00 - 0.10 K/cumm [facility] Lymphocyte abs 3.94(H) 0.80 - 3.30 K/cumm [facility] Monocyte abs 0.64 0.20 - 0.80 K/cumm [facility] Eosinophil abs 0.07 0.00 - 0.50 K/cumm [facility] Basophil abs 0.05 0.00 - 0.10 K/cumm [facility] Neutrophil pct 55.7 % [facility] Comment: Interpretive Data Percent cell count reference ranges are not reported, since discordance with absolute values may lead to misinterpretation of CBC data. Current Interpretive Data was last revised on 2017. Imm gran pct 0.3 % [facility] Comment: Interpretive Data Percent cell count reference ranges are not reported, since discordance with absolute values may lead to misinterpretation of CBC data. Current Interpretive Data was last revised on 2017. Lymphocyte pct 36.8 % [facility] Comment: Interpretive Data Percent cell count reference ranges are not reported, since discordance with absolute values may lead to misinterpretation of CBC data. Current Interpretive Data was last revised on 2017. Monocyte pct 6.0 % [facility] Comment: Interpretive Data Percent cell count reference ranges are not reported, since discordance with absolute values may lead to misinterpretation of CBC data. Current Interpretive Data was last revised on 2017. Eosinophil pct 0.7 % [facility] Comment: Interpretive Data Percent cell count reference ranges are not reported, since discordance with absolute values may lead to misinterpretation of CBC data. Current Interpretive Data was last revised on 2017. Basophil pct 0.5 % [facility] Comment: Interpretive Data Percent cell count reference ranges are not reported, since discordance with absolute values may lead to misinterpretation of CBC data. Current Interpretive Data was last revised on 2017. Blood 08/03/2024 8:44 AM CDT 08/03/2024 7:16 PM CDT us Saira KATE LAB BLOOD ORDERABLES Final Result CHAO BERTRAND [id number] Department [place] [address] * HIV 1/2 Antibody plus p24 Antigen Blood (08/03/2024 8:44 AM CDT) [facility] HIV 1/2 ab + p24 ag Nonreactive Nonreactive Comment: Nonreactive for HIV-1 antigen and HIV-1/HIV-2 antibodies. No laboratory evidence of HIV infection. If acute HIV infection is suspected, consider testing for HIV-1 RNA. Blood 08/03/2024 8:44 AM CDT 08/03/2024 7:16 PM CDT Saira KATE LAB MICROBIOLOGY - GENERAL ORDERABLES Final Result CHAO BERTRAND [address] [place] [address] * (ABNORMAL) CBC with auto differential (08/03/2024 8:44 AM CDT) [facility] WBC 10.70(H) 3.80 - 9.90 K/cumm Hgb 12.7 11.9 - 15.5 g/dL [facility] Hct 40.0 35.6 - 45.5 % [facility] Plt 267 150 - 400 K/cumm [facility] MPV 9.5 9.1 - 12.3 fL [facility] RBC 4.35 3.90 - 5.20 M/cumm [facility] MCV 92.0 81.3 - 96.4 fL [facility] MCH 29.2 27.1 - 33.3 pg [facility] MCHC 31.8(L) 32.3 - 35.7 g/dL [facility] RDW CV 14.4 11.1 - 14.9 % [facility] RDW SD 49.2(H) 35.7 - 48.1 fL [facility] NRBC abs 0.00 0.00 - 0.01 K/cumm [facility] Blood 08/03/2024 8:44 AM CDT 08/03/2024 7:16 PM CDT Saira KATE LAB BLOOD ORDERABLES Final Result Performing Organization Address City/[facility]/ZIP Co de Phone Number CHAO BERTRAND [id number] [place] [address] * Hepatitis panel, acute Blood (08/03/2024 8:44 AM CDT) Hep A IgM Nonreactive Nonreactive Comment: Interpretive Data: If Hep A IgM Ab is reported as Equivocal, a new sample should be drawn in two weeks for testing. Current interpretive data was last revised on 19. Hep B core IgM Nonreactive Nonreactive [facility] Comment: Interpretive Data If HepB Core IgM Ab is reported as Equivocal, a new sample should be drawn in two weeks for testing. Current interpretive data was last revised on 19. Hep C Ab Nonreactive Nonreactive [facility] Comment: Interpretive Data Nonreactive: Antibodies to HCV not detected. Does NOT exclude the possibility of recent exposure to HCV. Equivocal: Equivocal for HCV antibodies. Supplemental molecular testing will be automatically performed to determine infection status in accordance with current CDC screening recommendations. Reactive: Positive for HCV antibodies. This may represent current or past HCV infection. Supplemental molecular testing will be automatically performed to determine current infection status in accordance with current CDC screening recommendations. Interpretive data was last revised on 2019. HepBsAg Nonreactive Nonreactive [facility] Blood 08/03/2024 8:44 AM CDT 08/03/2024 7:16 PM CDT Saira KATE LAB MICROBIOLOGY - GENERAL ORDERABLES Final Result Performing Organization Address [facility] Co de Phone Number CHAO BERTRAND [address] [place] [address] * (ABNORMAL) Vitamin D 25 hydroxy (08/03/2024 8:44 AM CDT) Vitamin D 25-OH 24(L) 30 - 80 ng/mL Blood 08/03/2024 8:44 AM CDT 08/03/2024 7:16 PM CDT Saira KATE LAB BLOOD ORDERABLES Final Result Performing Organization Address [facility] Co de Phone Number CHAO BERTRAND [address] [facility] [place] [address] * RPR Blood (08/03/2024 8:44 AM CDT) Pathologist [facility] RPR Nonreactive Nonreactive Blood 08/03/2024 8:44 AM CDT 08/03/2024 7:16 PM CDT Saira KATE LAB MICROBIOLOGY - GENERAL ORDERABLES Final Result Performing Organization Address [facility] de Phone Number CHAO [address] [place] [address] * (ABNORMAL) TSH (08/03/2024 8:44 AM CDT) [facility] Thyroid Stimulating Hormone 32.70(H) 0.30 - 4.20 mcIUnit/mL Blood 08/03/2024 8:44 AM CDT 08/03/2024 7:16 PM CDT Saira KATE LAB BLOOD ORDERABLES Final Result Performing Organization Address [facility] de Phone Number CHAO BERTRAND [address] [place] [address] * Hemoglobin A1c (08/03/2024 8:44 AM CDT) [facility] Hgb A1C 5.4 4.0 - 5.6 % Estimated Average Glucose 108 mg/dL [facility]ERTRAND Comment: The ADA recommends reporting an estimated Average Glucose (eAG) with all Hemoglobin A1c results using the equation derived from a study of 507 normal and diabetic adults. Minority populations were underrepresented and children were not included. (Diabetes Care 31:6810-3385, 2008). The eAG is not equivalent to a fasting glucose. Blood 08/03/2024 8:44 AM CDT 08/03/2024 7:16 PM CDT Saira KATE LAB BLOOD ORDERABLES Final Result Performing Organization Address [facility] Co de Phone Number CHAO [address] Department [place] [address] * Vitamin B12 (08/03/2024 8:44 AM CDT) Vitamin B12 298 230 - 1,250 pg/mL Blood 08/03/2024 8:44 AM CDT 08/03/2024 7:16 PM CDT Saira KATE LAB [place] [address] Department [place] [address] * (ABNORMAL) Lipid panel (08/03/2024 8:44 AM CDT) Cholesterol 190 30 - 199 mg/dL Comment: Interpretive Data Ages < or = 19 years Acceptable: <170 mg/dL Borderline high: 170-199 mg/dL High: >or= 200 mg/dL Ages > or = 20 years Desirable: <200 mg/dL Borderline high: 200-239 mg/dL High: >or= 240 mg/dL Literature References: 1. Expert Panel on Integrated Guidelines for Cardiovascular Health and Risk Reduction in Children and Adolescents. Pediatrics 2011;128:S213 2. NCEP Expert Panel. Circulation 2004;110:227 Current Interpretive Data was last revised on 2017. Triglycerides 68 <=149 mg/dL [facility]ERTR[facility] Comment: Interpretive Data Ages < or = 9 years Acceptable: <75 mg/dL Borderline high: 75-99 mg/dL High: >or= 100 mg/dL Ages 10 to 20 years Acceptable: <90 mg/dL Borderline high: 90-129 mg/dL High: >or= 130 mg/dL Ages > or = 20 years Desirable: <150 mg/dL Borderline high: 150-199 mg/dL High: 200-499 mg/dL Very high: >or= 499 mg/dL Literature References: 1. Expert Panel on Integrated Guidelines for Cardiovascular Health and Risk Reduction in Children and Adolescents. Pediatrics 2011;128:S213 2. NCEP Expert Panel. Circulation 2004;110:227 Current Interpretive Data was last revised on 2017. HDL 47 >=40 mg/dL [facility]TR[facility] Comment: Interpretive Data Ages < or = 19 years Acceptable: >45 mg/dL Borderline low: 40-45 mg/dL Low: <40 mg/dL Ages > or = 20 years Desirable: >or= 60 mg/dL Low: <40 mg/dL Literature References: 1. Expert Panel on Integrated Guidelines for Cardiovascular Health and Risk Reduction in Children and Adolescents. Pediatrics 2011;128:S213 2. NCEP Expert Panel. Circulation 2004;110:227 Current Interpretive Data was last revised on 2017. LDL, calculated 130(H) <=129 mg/dL [facility]ERTRAND Comment: Interpretive Data Ages < or = 19 years Acceptable: <110 mg/dL Borderline high: 110-129 mg/dL High: >or= 130 mg/dL Ages > or = 20 years Optimal: <100 mg/dL Near optimal: 100-129 mg/dL Borderline high: 130-159 mg/dL High: >160 mg/dL Calculated using the Darren LDL-C estimating equation. This equation was implemented on 2023. Prior to this date LDL-C was estimated using the Friedewald equation. Literature References: 1. Expert Panel on Integrated Guidelines for Cardiovascular Health and Risk Reduction in Children and Adolescents. Pediatrics 2011;128:S213 2. NCEP Expert Panel. Circulation 2004;110:227 3. Darren Holley et al. KUNAL Cardiol. 2019August 02;5(5):540-548. doi: 10.1001/jamacardio.2020.0013 Current Interpretive Data was last revised on 2023. Non-HDL Cholesterol 143 mg/dL [facility]ERTRAND Comment: Interpretive Data Ages < or = 19 years Acceptable: <120 mg/dL Borderline high: 120-144 mg/dL High: >145 mg/dL Ages > or = 20 years When triglycerides are >200 mg/dL, Non-HDL cholesterol is a secondary target of therapy with treatment goals that are 30 mg/dL greater than the LDL cholesterol target. Literature References: 1. Expert Panel on Integrated Guidelines for Cardiovascular Health and Risk Reduction in Children and Adolescents. Pediatrics 2011;128:S213 2. NCEP Expert Panel. Circulation 2004;110:227 Current Interpretive Data was last revised on 2017. Chol/HDL ratio 4 [facility] Blood 08/03/2024 8:44 AM CDT 08/03/2024 7:16 PM CDT Saira KATE LAB [place]LO[place] [address] Department [place] [address] * (ABNORMAL) Comprehensive metabolic panel (08/03/2024 8:44 AM CDT) Pathologist [facility] Sodium 139 135 - 145 mmol/L Potassium, pl 3.7 3.3 - 4.9 mmol/L [facility] Chloride 102 97 - 110 mmol/L [facility] CO2 26 22 - 32 mmol/L [facility] Anion gap 11 2 - 15 mmol/L [facility] BUN 7 6 - 25 mg/dL [facility] Creatinine 0.66 0.60 - 1.10 mg/dL [facility] Glucose 78 70 - 199 mg/dL [facility] Comment: Interpretive Data Fasting glucose >/= 126 mg/dl is diagnostic for diabetes. Fasting is defined as no caloric intake for at least 8 hours. Fasting glucose between 100 mg/dl to 125 mg/dl is diagnostic of prediabetes. In a patient with classic symptoms of hyperglycemia or hyperglycemic crisis, a random glucose >/= 200 mg/dl is diagnostic for diabetes. In the absence of unequivocal hyperglycemia, results should be confirmed by repeat testing. The classification and Diagnosis of Diabetes Diabetes Care 2021; 46: S19-S40. Current interpretive data was last revised 2022. Calcium 8.9 8.5 - 10.3 mg/dL [facility] Bilirubin, total 0.2 0.1 - 1.2 mg/dL [facility] Protein, pl 7.2 6.5 - 8.5 g/dL [facility] Albumin 4.1 3.5 - 5.0 g/dL [facility] Alk phos 46 40 - 130 Units/L [facility] ALT 6(L) 7 - 45 Units/L [facility] AST 29 10 - 45 Units/L [facility] Blood 08/03/2024 8:44 AM CDT 08/03/2024 7:16 PM CDT us Saira KATE LAB BLOOD ORDERABLES Final Result [facility]AO BERTRAND [address] Department [place] [address] * Screening Mammogram Bilateral W Sajan (05/16/2024 12:46 PM GUIDE TOUR) Anatomical Region Laterality Modality Breast Bilateral Mammography Impressions 05/16/2024 12:56 PM GUIDE TOUR BI-RADS ATLAS category (overall): 2 - Benign There is no mammographic evidence of malignancy. A 1 year screening mammogram is recommended. The patient has been or will be contacted. We recommend annual screening mammography for women at average risk of breast cancer beginning at age 40, based on guidelines of the [place] [employer] (ACR Practice Parameter for the Performance of Screening and Diagnostic Mammography) and [place] [employer]. For women with and elevated risk of breast cancer, please refer to the ACR Practice Parameter for specific screening recommendations. The patient will be entered into a reminder system with a target due date of 1 year for her next screening exam. Narrative 05/16/2024 12:56 PM GUIDE TOUR Screening Mammogram Bilateral W Sajan: 05/16/24 The study was acquired using full field digital technology and interpreted from soft copy. 2D digital mammographic views, as well as 3D digital tomosynthesis were performed in the CC and MLO projections. CLINICAL: Breast cancer screening by mammogram. No relevant medical history has been documented for this patient. No known family history of breast cancer. COMPARISONS: 05/03/2023 Screening Mammogram Bilateral W Sajan 05/06/2020 US GUIDED BREAST BIOPSY ADDITIONAL 02/29/2020 US Breast Right Limited 02/29/2020 Diagnostic Mammogram Bilateral W Sajan 02/29/2020 US Breast Left Limited 08/24/2019 US Breast Right Limited 08/24/2019 Diagnostic Mammogram Bilateral W Sajan 08/24/2019 US Breast Left Limited BREAST TISSUE: The breasts are extremely dense, which lowers the sensitivity of mammography. FINDINGS: Multiple biopsy marker clips are unchanged in both breasts.Benign appearing bilateral breast masses and calcifications have not suspiciously changed. There is no new suspicious finding in either breast on mammogram. Saira KATE IMG MAMMO PROCEDURES Final Result * ThinPrep Imaging Pap Reflex HPV mRNA E6/E7 (01/22/2016 12:38 PM CDT) CLINICAL INFORMATION [facility] HISTORICAL RESULTS Comment:Information not prov ided LMP: INFORMATION NOT PROVIDED [facility] HISTORICAL RESULTS PREV. PAP: [facility] HISTORICAL RESULTS Comment:INFORMATION NOT PROV IDED PREV. BX: [facility] HISTORICAL RESULTS Comment:INFORMATION NOT PROV IDED SOURCE: [facility] HISTORICAL RESULTS Comment:Information not prov ided STATEMENT OF ADEQUACY: [facility] HISTORICAL RESULTS Comment:Satisfactory for anand luation. Endocervical/transformation zone component present. Age and/or menstrual status not provided INTERPRETATION/RES ULT: [facility] HISTORICAL RESULTS Comment:Negative for intraep ithelial lesion or malignancy. COMMENT: [facility] HISTORICAL RESULTS Comment:This Pap test has be en evaluated with computer assisted technology. LINOTYPIST: [facility] HISTORICAL RESULTS Comment:MLO, CT(ASCP) CT scr eening location: [place] [address] [place] [address] 01/22/2016 12:3 8 PM CDT 01/28/2016 10:45 AM CDT Narrative [facility] HISTORICAL RESULTS - 01/28/2016 10:19 AM CDT FASTING: UNKNOWN PERFORMING LAB: , [address] [address] [address] [facility] [phone] Leigh Smith MD Nestor Oconnor MD LAB PATHOLOGY ORDERABLES F inal Result [facility] HISTORICAL RESULTS from Last 3 Months or Most Recently Relevant to Health Maintenance Insurance [facility] [place] [facility] Care Teams Superintendent Maintenance Relationship Specialty Start Date End Date Saira Doty PA [address] [place] [address] PCP - General Internal Medicine 07/17/19 Wai Ozuna MD [address] [place] [address] 07/17/19
--- OUTSIDE RECORDS SUMMARY | 2024-09-07 12:26 | XMS_ITS | Encounter Summary ---
Author Organization [facility] Healthcare Address [address] [place] [address] Care Team Providers Care Buckler And Lacer Name Role Phone Saira Doty Primary Care Provider [phone]- [phone] Wai Ozuna MD Unavailable [phone] Encounter Details Date Type Department Care Team (Latest Contact Info) Description 08/04/2024 Results Follow-Up [facility] Family Medicine [address] [place] [address] Saira Doty PA [address] [place] [address] CBC with auto differential, Comprehensive metabolic panel, Hemoglobin A1c, Additional followed-up results: 9 Social History Tobacco Use Types Packs/Day Years [...] on file 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
--- OUTSIDE RECORDS SUMMARY | 2024-09-07 12:26 | XMS_ITS | Referral Summary ---
Author Organization [facility] [address] [facility] Address [address] [place] [phone] Care Team Providers Care Jewelry Sales Coordinator Name Role Phone Saira Doty Primary Care Provider [phone]- [phone] Wai Ozuna MD Unavailable Encounters Date Type Department Care Team Description 08/07/[address] [place] [phone] Saira Doty PA 08/06/2024 Orders Only [address] [place] [address] Saira Doty PA Postoperative hypothyroidism (Primary Dx) 08/06/[address] [place] [phone] Saira Doty PA Test Results 08/04/2024 Results Follow-Up [address] [place] [address] Saira Doty PA CBC with auto differential, Comprehensive metabolic panel, Hemoglobin A1c, Additional followed-up results: 9 08/03/2024 8:44 AM CDT - 08/03/2024 11:59 PM CDT Hospital Encounter [facility] [address] [place] [address] Fatigue, unspecified type; Diabetes mellitus screening; Lipid screening; Vitamin D deficiency; Postoperative hypothyroidism; Screening examination for STD (sexually transmitted disease) Discharge Disposition: Discharge to home or self care 08/03/2024 8:[address] [facility] Outpatient Lab at [address] [phone] 07/26/2024 7:30 AM CDT Office Visit [facility] [address] [facility] [address] [place] [address] Saira Doyt PA Postoperative hypothyroidism (Primary Dx); Vitamin D deficiency; Lipid screening; Diabetes mellitus screening; Fatigue, unspecified type; control counseling; Screening examination for STD (sexually transmitted disease); Cigarette smoker; BMI 30.0-30.9,adult; Obesity (BMI 30-39.9) from Last 3 Months Allergies No known active allergies Medications ergocalciferol [...] of 2023. Continue levothyroxine. Was removed at [facility] by Dr. Bladimir camp. Plans to [...] 03/14/2020 Assessment & Plan (06/09/2020 8:06 PM BOLT HEADER): Pathology shows benign changes. She has followup with Dr. 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 She has multiple masses and is always worried about her medical concerns so I want her to discuss options. Cigarette smoker 03/13/2020 Assessment & Plan (03/13/2022 7:21 PM BOLT HEADER): Encouraged smoking cessation. Discussed 3 minutes. Reviewed options for assistance with cessation. Reviewed buttermaker helper sequela associated with smoking. Pt declines assistance at this time but may contact the office at anytime for further help as they desire. Assessment & Plan (08/24/2021 1:50 AM CDT): Encouraged smoking cessation. Discussed 3 minutes. Reviewed options for assistance with cessation. Reviewed [facility] sequela associated with smoking. Pt declines assistance at this time but may contact the office at anytime for further help as they desire. Assessment & Plan (06/18/2021 10:02 PM CDT): Encouraged smoking cessation. Discussed 3 minutes. Reviewed options for assistance with cessation. Reviewed buttermaker helper sequela associated with smoking. Pt declines assistance at this time but may contact the office at anytime for further help as they desire. Reviewed risk of OCP that her estrogen based with smokers over 35. Assessment & Plan (12/01/2020 8:42 AM CDT): Encouraged smoking cessation. Discussed 3 minutes. Reviewed options for assistance with cessation. Reviewed [facility] sequela associated with smoking. Pt declines assistance at this time but may contact the office at anytime for further help as they desire. Assessment & Plan (08/27/2020 8:17 AM CDT): Advised smoking cessation, she declines aid Assessment & Plan (06/09/2020 8:07 PM BOLT HEADER): Encouraged smoking cessation. Discussed 3 minutes. Reviewed options for assistance with cessation. Reviewed [facility] sequela associated with smoking. Pt declines assistance at this time but may contact the office at anytime for further help as they desire. Assessment & Plan (03/14/2020 4:58 PM BOLT HEADER): Encouraged smoking cessation. Discussed 3 minutes. Reviewed options for assistance with cessation. Reviewed [facility] sequela associated with smoking. Pt declines assistance at this time but may contact the office at anytime for further help as they desire. Anxiety 11/29/2019 Assessment & Plan (01/20/2024 8:22 PM CDT): Anxiety symptoms have improved with removal of the nodular thyroid. She states she is feeling good without medication currently. Continue to monitor Assessment & Plan (03/13/2022 7:21 PM BOLT HEADER): Patient has significant anxiety but prefers to not use any medication. May call at any time if changes her mind. Assessment & Plan (12/01/2020 8:42 AM CDT): Patient is still anxious about her medical concerns. She doesn't want medication Assessment & Plan (03/14/2020 4:58 PM BOLT HEADER): Discussed again starting an anxiety medication due [...] 08/22/2019 Assessment & Plan (03/13/2022 7:20 PM BOLT HEADER): Continue per Dr. Damon for management of [...] cytology results 2) Plan follow-up with primary Geopolitics Teacher (Dr. Damon) Vitamin D deficiency 08/22/2019 Assessment & Plan (04/02/2024 4:49 PM BOLT HEADER): Supplement Assessment & Plan (01/20/2024 8:22 PM CDT): Supplement Assessment & Plan (03/13/2022 7:20 PM BOLT HEADER): Supplement Assessment & Plan (03/14/2020 4:54 PM BOLT HEADER): Encouraged calcium and vitamin D Assessment & [...] 08/05/2024 Assessment & Plan (04/02/2024 4:49 PM BOLT HEADER): Patient complains of suprapubic cramps. She does [...] screenings. Assessment & Plan (03/13/2022 7:21 PM BOLT HEADER): Encouraged healthy lifestyle, good nutrition and exercise. Encouraged Calcium and Vitamin D and weight bearing exercise for bone health. Reviewed immunizations Reviewed age appropirate screenings. BMI 28.0-28.9,adult 03/03/2022 07/27/19 25 Assessment & Plan (03/26/2024 2:00 PM BOLT HEADER): Discussed the patient's BMI. The BMI is above average. BMI management plan is completed. BMI Follow-up includes: nutrition counseling, exercise counseling and education provided. Assessment & Plan (01/20/2024 8:22 PM CDT): Weight/BMI is in healthy range. Continue healthy lifestyle to maintain. Assessment & Plan (03/03/2022 1:38 PM BOLT HEADER): Weight/BMI is in healthy range. Continue healthy [...] age appropirate screenings. BMI 25.0-25.9,adult 08/18/2021 03/03/20 Assessment & Plan (08/18/2021 7:30 AM CDT): [...] her health care concerns. Offered referral to pie cutter so that she can speak with specialist [...] 021 Assessment & Plan (06/09/2020 1:30 PM BOLT HEADER): Weight/BMI is in healthy range. Continue healthy lifestyle to maintain. BMI 25.0-25.9,adult 03/13/2020 06/10/19 21 Assessment & Plan (03/13/2020 8:54 AM BOLT HEADER): Weight/BMI is in healthy range. Continue healthy lifestyle to maintain. Encounter for management and injection of depo-Provera 12/14/2019 06/18/2021 Assessment & Plan (12/01/2020 8:41 AM CDT): Injected today. Still spotting, but ok with this side effect Assessment & Plan (06/09/2020 8:07 PM BOLT HEADER): Depo given in office with office supply. Next one due: August 25 - Assessment & Plan (03/14/2020 4:59 PM BOLT HEADER): Depo injected today. Next injection due 05/29 [...] Reviewed options for assistance with cessation. Reviewed buttermaker helper sequela associated with smoking. Pt declines [...] followup to re-evaluate Breast lump 01/22/2016 08/05/2024 Immunizations Immunization Administration Dates Next Due DTP 12/20/1992, 0,08/13/1988,04/16,1987 Hep A, Adult 06/20/2009 Influenza, Quadrivalent, Spl it, Preservative Free, Intramuscular 01/26/2023 Influenza, Unspecified 01/27/2024,2021,04/04/2021(Defer red: Patient Refused),01/03/2020 MMR 01/24/1989 Measles 02/02/1993 Moderna SARS-CoV-2 Monovalen t Vaccination (12+ YRS) 11/27/2020,10/28/2020 Mumps 10/26/1994 OPV 12/20/1992, 0,08/13/1988,04/16,1987 Social History Tobacco Use Types Packs/Day Years [...] on file Legal Sex Female 5:40 PM BOLT HEADER Gender Identity Not on file Sexual Orientation Not on file 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 gonorrhoeae/C. trachomatis Amplification Urine (08/03/2024 8:44 AM CDT) C. trachomatis Not Detected [facility] Comment:Testing performed by : [facility], [address] [facility] [place]., [address] N. gonorrhoeae Not Detected [facility] Comment: Interpretive Data This assay detects Chlamydia trachomatis and Neisseria gonorrhoeae by nucleic acid amplification testing (NAAT). This assay has been cleared by the [place] Food and Drug administration. The performance characteristics of this test have been verified by the [facility] Molecular Infectious Disease laboratory. The performance characteristics of this test have not been evaluated in individuals less than 14 years of age. Current Interpretive Data was last revised on 2023. Testing performed by: [facility], [address] [place]., [address] Urine (None) 08/03/2024 8:44 AM CDT 08/04/2024 12:46 AM CDT Saira KATE LAB MICROBIOLOGY - GENERAL ORDERABLES Final Result [facility] [address] Department [place] [address] [facility] * eGFR (08/03/2024 8:44 AM CDT) eGFR [...] LAB BLOOD ORDERABLES Final Result [facility] [address] [place] [address] * (ABNORMAL) Differential, auto (08/03/2024 8:44 AM CDT) Neutrophil abs 5.97 1.50 - 6.50 K/cumm Imm gran abs 0.03 0.00 - 0.10 K/cumm [facility] Lymphocyte abs 3.94(H) 0.80 - 3.30 K/cumm [facility] Monocyte abs 0.64 0.20 - 0.80 K/cumm [facility] Eosinophil abs 0.07 0.00 - 0.50 K/cumm [facility] Basophil abs 0.05 0.00 - 0.10 K/cumm [facility] Neutrophil pct 55.7 % [facility] Comment: Interpretive Data Percent cell count reference ranges are not reported, since discordance with absolute values may lead to misinterpretation of CBC data. Current Interpretive Data was last revised on 2017. Imm gran pct 0.3 % [facility] Comment: Interpretive Data Percent cell count reference ranges are not reported, since discordance with absolute values may lead to misinterpretation of CBC data. Current Interpretive Data was last revised on 2017. Lymphocyte pct 36.8 % [facility] Comment: Interpretive Data Percent cell count reference ranges are not reported, since discordance with absolute values may lead to misinterpretation of CBC data. Current Interpretive Data was last revised on 2017. Monocyte pct 6.0 % [facility] Comment: Interpretive Data Percent cell count reference ranges are not reported, since discordance with absolute values may lead to misinterpretation of CBC data. Current Interpretive Data was last revised on 2017. Eosinophil pct 0.7 % [facility] Comment: Interpretive Data Percent cell count reference ranges are not reported, since discordance with absolute values may lead to misinterpretation of CBC data. Current Interpretive Data was last revised on 2017. Basophil pct 0.5 % [facility] Comment: Interpretive Data Percent cell count reference ranges are not reported, since discordance with absolute values may lead to misinterpretation of CBC data. Current Interpretive Data was last revised on 2017. Blood 08/03/2024 8:44 AM CDT 08/03/2024 7:16 PM CDT Saira KATE LAB BLOOD ORDERABLES Final Result Performing Organization Address [facility] de Phone Number [facility] [address] [facility] [place] [address] * HIV 1/2 Antibody plus p24 Antigen Blood (08/03/2024 8:44 AM CDT) [facility] HIV 1/2 ab + p24 ag Nonreactive Nonreactive Comment: Nonreactive for HIV-1 antigen and HIV-1/HIV-2 antibodies. No laboratory evidence of HIV infection. If acute HIV infection is suspected, consider testing for HIV-1 RNA. Blood 08/03/2024 8:44 AM CDT 08/03/2024 7:16 PM CDT Saira [facility] LAB MICROBIOLOGY - GENERAL ORDERABLES Final Result Performing Organization Address [facility] de Phone Number [facility] [address] [address] [facility] [place] [address] * (ABNORMAL) CBC with auto differential (08/03/2024 8:44 AM CDT) [facility] WBC 10.70(H) 3.80 - 9.90 K/cumm Hgb 12.7 11.9 - 15.5 g/dL [facility] Hct 40.0 35.6 - 45.5 % [facility] Plt 267 150 - 400 K/cumm [facility] MPV 9.5 9.1 - 12.3 fL [facility] RBC 4.35 3.90 - 5.20 M/cumm [facility] MCV 92.0 81.3 - 96.4 fL [facility] MCH 29.2 27.1 - 33.3 pg [facility] MCHC 31.8(L) 32.3 - 35.7 g/dL [facility] RDW CV 14.4 11.1 - 14.9 % [facility] RDW SD 49.2(H) 35.7 - 48.1 fL [facility] NRBC abs 0.00 0.00 - 0.01 K/cumm [facility] Blood 08/03/2024 8:44 AM CDT 08/03/2024 7:16 PM CDT Saira KATE LAB BLOOD ORDERABLES Final Result Performing Organization Address [facility] de Phone Number [facility] [address] [place] [address] * Hepatitis panel, acute Blood (08/03/2024 8:44 AM CDT) Hep A IgM Nonreactive Nonreactive Comment: Interpretive Data: If Hep A IgM Ab is reported as Equivocal, a new sample should be drawn in two weeks for testing. Current interpretive data was last revised on 19. Hep B core IgM Nonreactive Nonreactive [facility] Comment: Interpretive Data If HepB Core IgM Ab is reported as Equivocal, a new sample should be drawn in two weeks for testing. Current interpretive data was last revised on 19. Hep C Ab Nonreactive Nonreactive [facility] Comment: Interpretive Data Nonreactive: Antibodies to HCV [...] last revised on 2019. HepBsAg Nonreactive Nonreactive [facility] Blood 08/03/2024 8:44 AM CDT 08/03/2024 7:16 PM CDT Saira [facility] LAB MICROBIOLOGY - GENERAL ORDERABLES Final Result Performing Organization Address [facility] Co de Phone Number [facility] [address] [address] [place] [address] * (ABNORMAL) Vitamin D 25 hydroxy (08/03/2024 8:44 AM CDT) Pathologist [facility] Vitamin D 25-OH 24(L) 30 - 80 ng/mL Blood 08/03/2024 8:44 AM CDT 08/03/2024 7:16 PM CDT Saira KATE LAB BLOOD ORDERABLES Final Result Performing Organization Address [facility] Co de Phone Number [facility] [address] [address] [facility] [place] [address] * RPR Blood (08/03/2024 8:44 AM CDT) [facility] RPR Nonreactive Nonreactive Blood 08/03/2024 8:44 AM CDT 08/03/2024 7:16 PM CDT Saira [facility] LAB MICROBIOLOGY - GENERAL ORDERABLES Final Result Performing Organization Address [facility] de Phone Number [facility] [address] [address] [place] [address] * (ABNORMAL) TSH (08/03/2024 8:44 AM CDT) [facility] Thyroid Stimulating Hormone 32.70(H) 0.30 - 4.20 mcIUnit/mL Blood 08/03/2024 8:44 AM CDT 08/03/2024 7:16 PM CDT Saira KATE LAB BLOOD ORDERABLES Final Result Performing Organization Address [facility] Co de Phone Number [facility] [address] [address] [facility] [place] [address] * Hemoglobin A1c (08/03/2024 8:44 AM CDT) [facility] Hgb A1C 5.4 4.0 - 5.6 % Estimated Average Glucose 108 mg/dL [facility] Comment: The ADA recommends reporting an estimated Average Glucose (eAG) with all Hemoglobin A1c results using the equation derived from a study of 507 normal and diabetic adults. Minority populations were underrepresented and children were not included. (Diabetes Care 31:2203-4214, 2008). The eAG is not equivalent to a fasting glucose. Blood 08/03/2024 8:44 AM CDT 08/03/2024 7:16 PM CDT Saira KATE LAB BLOOD ORDERABLES Final Result Performing Organization Address [facility] de Phone Number RAMÓNMARLA [address] [address] [place] [address] * Vitamin B12 (08/03/2024 8:44 AM CDT) Vitamin B12 298 230 - 1,250 pg/mL Blood 08/03/2024 8:44 AM CDT 08/03/2024 7:16 PM CDT Saira [facility]ATE LAB BLOOD ORDERABLES Final Result Performing Organization Address [facility] Phone Number [facility] [address] [address] [place] [address] * (ABNORMAL) Lipid panel (08/03/2024 8:44 AM [...] on 2017. HDL 47 >=40 mg/dL [facility] Comment: Interpretive Data Ages < or = [...] 2017. LDL, calculated 130(H) <=129 mg/dL [facility] Comment: Interpretive Data Ages < or = [...] NCEP Expert Panel. Circulation 2004;110:227 3. Darren Ray al. KUNAL Cardiol. 2020 August 02;5(5):540-548. doi: 10.1001/jamacardio.2020.0013 Current Interpretive Data was last revised on 2023. Non-HDL Cholesterol 143 mg/dL [facility] Comment: Interpretive Data Ages < or = [...] last revised on 2017. Chol/HDL ratio 4 [facility] Blood 08/03/2024 8:44 AM CDT 08/03/2024 7:16 PM CDT us Saira [facility]ATE LAB BLOOD ORDERABLES Final Result [facility] [address] Department [place] [address] * (ABNORMAL) Comprehensive metabolic panel (08/03/2024 8:44 AM CDT) Sodium 139 135 - 145 mmol/L Potassium, [...] KATE LAB BLOOD ORDERABLES Final Result [facility] [address] [place] [address] * Screening Mammogram Bilateral W Sajan (05/16/2024 12:46 PM BOLT HEADER) Anatomical Region Laterality Modality Breast Bilateral Mammography Impressions 05/16/2024 12:56 PM BOLT HEADER BI-RADS ATLAS category (overall): 2 - Benign There is no mammographic evidence of malignancy. A 1 year screening mammogram is recommended. The patient has been or will be contacted. We recommend annual screening mammography for women at average risk of breast cancer beginning at age 40, based on guidelines of the [place] [employer] (ACR Practice Parameter for the Performance of Screening and Diagnostic Mammography) and [place] [employer]. For women with and elevated risk of breast cancer, please refer to the ACR Practice Parameter for specific screening recommendations. The patient will be entered into a reminder system with a target due date of 1 year for her next screening exam. Narrative 05/16/2024 12:56 PM BOLT HEADER Screening Mammogram Bilateral W Sajan: 05/16/24 The [...] HPV mRNA E6/E7 (01/22/2016 12:38 PM CDT) Pathologist [facility] CLINICAL INFORMATION [facility] HISTORICAL RESULTS Comment:Information not prov ided LMP: INFORMATION NOT PROVIDED [facility] HISTORICAL RESULTS PREV. PAP: [facility] HISTORICAL RESULTS Comment:INFORMATION NOT PROV IDED PREV. BX: [facility]IST[facility]ICAL RESULTS Comment:INFORMATION NOT PROV IDED SOURCE: [facility]IST[facility]ICAL RESULTS Comment:Information not prov ided STATEMENT OF ADEQUACY: [facility]IST[facility]ICAL RESULTS Comment:Satisfactory for anand luation. Endocervical/transformation zone component present. Age and/or menstrual status not provided INTERPRETATION/RES ULT: [facility] HIST[facility]ICAL RESULTS Comment:Negative for intraep ithelial lesion or malignancy. COMMENT: [facility]ISTORICAL RESULTS Comment:This Pap test has be en evaluated with computer assisted technology. DEAF INTERPRETER: [facility] HISTORICAL RESULTS Comment:MLO, CT(ASCP) CT scr eening location: [facility] [place] [address] [place] [address] 01/22/2016 12:3 8 PM CDT 01/28/2016 10:45 AM CDT Narrative [facility] HISTORICAL RESULTS - 01/28/2016 10:19 AM CDT FASTING: UNKNOWN PERFORMING LAB: , [facility] [place] [address] [facility] [phone] Leigh Smith MD Nestor Oconnor MD LAB PATHOLOGY ORDERABLES F inal [facility]ICAL RESULTS from Last 3 Months or Most Recently Relevant to Health Maintenance Insurance [facility] CORE PR [facility] [place] [id number] [facility] [place] [address] Care Teams Jewelry Sales Coordinator Relationship Specialty Start Date End Date Saira Doty PA [address] [place], [place] [id number] PCP - General Internal Medicine 07/17/19 Wai Ozuna MD [address] [place] [address] 07/17/19
--- OUTSIDE RECORDS SUMMARY | 2024-09-07 12:26 | XMS_ITS | Encounter Summary ---
Author Organization [facility] Healthcare Address [address] [place] [address] Care Team Providers Care Astrobiologist Name Role Phone Saira Doty Primary Care Provider [phone] Wai Ozuna MD Unavailable [phone] Encounter Details Date Type Department Care Team (Late st Contact Info) Description 11/15/2019 Telephone [facility] Healthcare Occupatiuonal Health [address] [place] [address] Room 34[address] (Third Floor) [place] [address] Nahed Awad RN Social History Tobacco Use Types Packs/Day Years Used Date Smoking Tobacco: Every Day Smokeless Tobacco: Never Alcohol Use Standard Drinks/Week Comments Yes 0 (1 standard drink = 0.6 oz pur e alcohol) PHQ-2 Answer Date Recorded PHQ-2 Score 0 07/23/2019 Comments Unknown Sex and Gender Information Value Date Recorded Sex Assigned at Not on file Legal Sex Female 5:40 PM MERCHANDISER RETAIL REPRESENTATIVE Gender Identity Not on file Sexual Orientation Not on file 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 05/21/2020 05/21/2020 06/04/2020 3:0 7 AM MERCHANDISER RETAIL REPRESENTATIVE documented as of this encounter Care Teams Astrobiologist Relationship Specialty Start Date End Date Saira Doty PA [address] [place] [address] PCP - General Internal Medicine 07/17/19 Wai Ozuna MD [address] [place] [address] 07/17/19 documented as of this encounter
[2024-09-09 02:58] LABS: Prolactin 14.6 ng/mL
== END 2024-09-07 12:24 | disposition home or self-care (01) ==
PROVIDERS: PCP Physician Assistant; Visit Provider Obstetrics & Gynecology
DX: N61.1 Abscess of the breast and nipple (principal); N64.3 Galactorrhea not associated with childbirth
CPT/HCPCS: 36415; 76642; 77061; 77065; 84146; G0279

== ENCOUNTER 2024-10-10 08:56 | Outpatient (CLI) | payer OTHER, SELFPAY ==
--- NOTE | ~2024-10-10 | US_ITS ---
US breast LT limited 10/10/2024 09:23 Indication: Follow-up breast abscess Procedure: High-resolution Limited ultrasound of the right breast Comparison: Ultrasound dated 09/07/2024 Findings: There is a small subdermal fluid collection at C7-8:00, in the subareolar location measurin g 2.7 x 1.3 x 0.3 cm compared with 3.6 x 3.4 x 0.5 cm on prior examination. Decreased surrounding phl egmonous change. Impression: 1: Improving size of fluid collection in the left subareolar location, likely resolving infection. Recommendation: Recommend follow-up clinical management to resolution. BI-RADS CATEGORY 2 - BENIGN FINDINGS Reviewed, dictated and finalized at location A. Impression: 1: Improving size of fluid collection in the left subareolar location, likely r esolving infection. Recommendation: Recommend follow-up clinical management to resolution. BI-RADS CATEGORY 2 - BENIGN FINDINGS
--- OUTSIDE RECORDS SUMMARY | 2024-10-10 09:02 | XMS_ITS | Referral Summary ---
Author Organization [facility] Address [address] [place] [phone] Care Team Providers Care Auto Body Shop Manager Name Role Phone Saira Doty Primary Care Provider [phone]- [phone] Wai Ozuna MD Unavailable Encounters Date Type Department Care Team Description 10/04/[address] [place] [phone] Saira Doty PA Medical Question/Miscellaneous 09/11/2024 Orders Only [address] [place] [phone] ProviderLoren MD 08/07/[address] [place] [address] Saira Doty PA 08/06/2024 Orders Only [address] [place] [phone] Saira Doty PA Postoperative hypothyroidism (Primary Dx) 08/06/[address] [place] [address] Saira Doty PA Test Results 08/04/2024 Results Follow-Up [facility] [address] [place] [address] [address] [place] [address] Saira Doty PA CBC with auto differential, Comprehensive metabolic panel, Hemoglobin A1c, Additional followed-up results: 9 08/03/2024 8:44 AM CDT - 08/03/2024 11:59 PM CDT Hospital Encounter [address] [address] Fatigue, unspecified type; Diabetes mellitus screening; Lipid screening; Vitamin D deficiency; Postoperative hypothyroidism; Screening examination for STD (sexually transmitted disease) Discharge Disposition: Discharge to home or self care 08/03/2024 8:45 AM CDT Lab [facility] at [address] [phone] 07/26/2024 7:30 AM CDT Office Visit [address] [place] [phone] Saira Doty PA Postoperative hypothyroidism (Primary Dx); [...] of 2023. Continue levothyroxine. Was removed at [facility] by Dr. Bladimir camp. Plans to follow [...] 03/14/2020 Assessment & Plan (06/09/2020 8:06 PM NEWSPAPER MANAGER): Pathology shows benign changes. She has followup with Dr. 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 She has multiple masses and is always worried about her medical concerns so I want her to discuss options. Cigarette smoker 03/13/2020 Assessment & Plan (03/13/2022 7:21 PM NEWSPAPER MANAGER): Encouraged smoking cessation. Discussed 3 minutes. Reviewed options for assistance with cessation. Reviewed snf sequela associated with smoking. Pt declines assistance at this time but may contact the office at anytime for further help as they desire. Assessment & Plan (08/24/2021 1:50 AM CDT): Encouraged smoking cessation. Discussed 3 minutes. Reviewed options for assistance with cessation. Reviewed snf sequela associated with smoking. Pt declines assistance at this time but may contact the office at anytime for further help as they desire. Assessment & Plan (06/18/2021 10:02 PM CDT): Encouraged smoking cessation. Discussed 3 minutes. Reviewed options for assistance with cessation. Reviewed superintendent terminal sequela associated with smoking. Pt declines assistance at this time but may contact the office at anytime for further help as they desire. Reviewed risk of OCP that her estrogen based with smokers over 35. Assessment & Plan (12/01/2020 8:42 AM CDT): Encouraged smoking cessation. Discussed 3 minutes. Reviewed options for assistance with cessation. Reviewed snf sequela associated with smoking. Pt declines assistance at this time but may contact the office at anytime for further help as they desire. Assessment & Plan (08/27/2020 8:17 AM CDT): Advised smoking cessation, she declines aid Assessment & Plan (06/09/2020 8:07 PM NEWSPAPER MANAGER): Encouraged smoking cessation. Discussed 3 minutes. Reviewed options for assistance with cessation. Reviewed superintendent terminal sequela associated with smoking. Pt declines assistance at this time but may contact the office at anytime for further help as they desire. Assessment & Plan (03/14/2020 4:58 PM NEWSPAPER MANAGER): Encouraged smoking cessation. Discussed 3 minutes. Reviewed options for assistance with cessation. Reviewed snf sequela associated with smoking. Pt declines assistance at this time but may contact the office at anytime for further help as they desire. Anxiety 11/29/2019 Assessment & Plan (01/20/2024 8:22 PM CDT): Anxiety symptoms have improved with removal of the nodular thyroid. She states she is feeling good without medication currently. Continue to monitor Assessment & Plan (03/13/2022 7:21 PM NEWSPAPER MANAGER): Patient has significant anxiety but prefers to not use any medication. May call at any time if changes her mind. Assessment & Plan (12/01/2020 8:42 AM CDT): Patient is still anxious about her medical concerns. She doesn't want medication Assessment & Plan (03/14/2020 4:58 PM NEWSPAPER MANAGER): Discussed again starting an anxiety medication due [...] 08/22/2019 Assessment & Plan (03/13/2022 7:20 PM NEWSPAPER MANAGER): Continue per Dr. Damon for management of [...] cytology results 2) Plan follow-up with primary Ultra Sound Technician (Dr. Damon) Vitamin D deficiency 08/22/2019 Assessment & Plan (04/02/2024 4:49 PM NEWSPAPER MANAGER): Supplement Assessment & Plan (01/20/2024 8:22 PM CDT): Supplement Assessment & Plan (03/13/2022 7:20 PM NEWSPAPER MANAGER): Supplement Assessment & Plan (03/14/2020 4:54 PM NEWSPAPER MANAGER): Encouraged calcium and vitamin D Assessment & [...] 08/05/2024 Assessment & Plan (04/02/2024 4:49 PM NEWSPAPER MANAGER): Patient complains of suprapubic cramps. She does [...] screenings. Assessment & Plan (03/13/2022 7:21 PM NEWSPAPER MANAGER): Encouraged healthy lifestyle, good nutrition and exercise. Encouraged Calcium and Vitamin D and weight bearing exercise for bone health. Reviewed immunizations Reviewed age appropirate screenings. BMI 28.0-28.9,adult 03/03/2022 07/27/19 25 Assessment & Plan (03/26/2024 2:00 PM NEWSPAPER MANAGER): Discussed the patient's BMI. The BMI is above average. BMI management plan is completed. BMI Follow-up includes: nutrition counseling, exercise counseling and education provided. Assessment & Plan (01/20/2024 8:22 PM CDT): Weight/BMI is in healthy range. Continue healthy lifestyle to maintain. Assessment & Plan (03/03/2022 1:38 PM NEWSPAPER MANAGER): Weight/BMI is in healthy range. Continue healthy [...] lifestyle to maintain. BMI 25.0-25.9,adult 06/18/2021 08/19/19 22 Assessment & Plan (06/18/2021 8:36 AM CDT): [...] her health care concerns. Offered referral to ice plant operator so that she can speak with specialist [...] 021 Assessment & Plan (06/09/2020 1:30 PM NEWSPAPER MANAGER): Weight/BMI is in healthy range. Continue healthy lifestyle to maintain. BMI 25.0-25.9,adult 03/13/2020 06/10/19 21 Assessment & Plan (03/13/2020 8:54 AM NEWSPAPER MANAGER): Weight/BMI is in healthy range. Continue healthy lifestyle to maintain. Encounter for management and injection of depo-Provera 12/14/2019 06/18/2021 Assessment & Plan (12/01/2020 8:41 AM CDT): Injected today. Still spotting, but ok with this side effect Assessment & Plan (06/09/2020 8:07 PM NEWSPAPER MANAGER): Depo given in office with office supply. Next one due: August 25 - Assessment & Plan (03/14/2020 4:59 PM NEWSPAPER MANAGER): Depo injected today. Next injection due 05/29 [...] Reviewed options for assistance with cessation. Reviewed snf sequela associated with smoking. 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 Not on file Not [...] Procedure Name Priority Date/Time Associated Diagnosis Comments PROLACTIN Routine 09/07/2024 2:33 PM CDT US BREAST LEFT LIMITED Schedule Routine, Read Routine (OP Routine) 09/07/2024 9:25 AM CDT EGFR Routine 08/03/2024 8:44 AM CDT Fatigue, [...] Read Routine (OP Routine) 05/16/2024 12:46 PM NEWSPAPER MANAGER Breast cancer screening by mammogram THINPREP IMAGING PAP REFLEX HPV MRNA E6/E7 Routine 01/22/2016 12:38 PM CDT from Last 3 Months or Most Recently Relevant to Health Maintenance Results * Prolactin (09/07/2024 2:33 PM CDT) SCRIBED Prolactin 14.6 ng/mL EXTERNAL LAB Blood us Historical Provider LAB BLOOD ORDERABLES Edit ed Result - Final EXTERNAL LAB * (ABNORMAL) US Breast Left Limited (09/07/2024 9:25 AM CDT) Anatomical Region Laterality Modality Breast Mammography Impressions 09/07/2024 9:25 AM CDT Eft breast subdermal abscess cavity at 7:00 to 8:00 location correlates to the clinical and imaging findings.This finding is mostly phlegmon with no significant amount of drain able fluid. No mammographic evidence of malignancy within the left breast BI-RADS 2 BENIGN Historical Provider IMG MAMMO PROCEDURES Edit ed Result - Final * N. gonorrhoeae/C. trachomatis Amplification Urine (08/03/2024 8:44 AM CDT) C. trachomatis Not Detected [facility] Comment:Testing performed by : [facility], [address] [place]., [address] N. gonorrhoeae Not Detected [facility] Comment: Interpretive Data This assay detects Chlamydia trachomatis and Neisseria gonorrhoeae by nucleic acid amplification testing (NAAT). This assay has been cleared by the [place] Food and Drug administration. The performance characteristics of this test have been verified by the [facility] Molecular Infectious Disease laboratory. The performance characteristics of this test have not been evaluated in individuals less than 14 years of age. Current Interpretive Data was last revised on 2023. Testing performed by: [facility], [address] [facility], [place]., [address] Urine (None) 08/03/2024 8:44 AM CDT 08/04/2024 12:46 AM CDT Saira KATE LAB MICROBIOLOGY - GENERAL ORDERABLES Final Result Performing Organization Address [facility] Co de Phone Number [facility] [address] Department [place] [address] [facility] * eGFR (08/03/2024 8:44 AM CDT) [...] BLOOD ORDERABLES Final Result Performing Organization Address City/[facility]/ZIP Co de Phone Number [facility] [address] Department [place] [address] * (ABNORMAL) Differential, auto (08/03/2024 8:44 AM CDT) Neutrophil abs 5.97 1.50 - 6.50 K/cumm Imm gran abs 0.03 0.00 - 0.10 K/cumm [facility] Lymphocyte abs 3.94(H) 0.80 - 3.30 K/cumm [facility] Monocyte abs 0.64 0.20 - 0.80 K/cumm [facility] Eosinophil abs 0.07 0.00 - 0.50 K/cumm [facility] Basophil abs 0.05 0.00 - 0.10 K/cumm [facility] Neutrophil pct 55.7 % [facility] Comment: Interpretive Data Percent cell count reference ranges are not reported, since discordance with absolute values may lead to misinterpretation of CBC data. Current Interpretive Data was last revised on 2017. Imm gran pct 0.3 % [facility] Comment: Interpretive Data Percent cell count reference ranges are not reported, since discordance with absolute values may lead to misinterpretation of CBC data. Current Interpretive Data was last revised on 2017. Lymphocyte pct 36.8 % [facility] Comment: Interpretive Data Percent cell count reference ranges are not reported, since discordance with absolute values may lead to misinterpretation of CBC data. Current Interpretive Data was last revised on 2017. Monocyte pct 6.0 % [facility] Comment: Interpretive Data Percent cell count reference ranges are not reported, since discordance with absolute values may lead to misinterpretation of CBC data. Current Interpretive Data was last revised on 2017. Eosinophil pct 0.7 % [facility] Comment: Interpretive Data Percent cell count reference ranges are not reported, since discordance with absolute values may lead to misinterpretation of CBC data. Current Interpretive Data was last revised on 2017. Basophil pct 0.5 % [facility] Comment: Interpretive Data Percent cell count reference ranges are not reported, since discordance with absolute values may lead to misinterpretation of CBC data. Current Interpretive Data was last revised on 2017. Blood 08/03/2024 8:44 AM CDT 08/03/2024 7:16 PM CDT us Saira KATE LAB BLOOD ORDERABLES Final Result [facility] [id number] Department [place] [address] * HIV 1/2 Antibody plus p24 Antigen Blood (08/03/2024 8:44 AM CDT) [facility] HIV 1/2 ab + p24 ag Nonreactive Nonreactive Comment: Nonreactive for HIV-1 antigen and HIV-1/HIV-2 antibodies. No laboratory evidence of HIV infection. If acute HIV infection is suspected, consider testing for HIV-1 RNA. Blood 08/03/2024 8:44 AM CDT 08/03/2024 7:16 PM CDT Saira KATE LAB MICROBIOLOGY - GENERAL ORDERABLES Final Result [facility] [address] [place] [address] * (ABNORMAL) CBC with auto differential (08/03/2024 8:44 AM CDT) [facility] WBC 10.70(H) 3.80 - 9.90 K/cumm Hgb 12.7 11.9 - 15.5 g/dL [facility] Hct 40.0 35.6 - 45.5 % [facility] Plt 267 150 - 400 K/cumm [facility] MPV 9.5 9.1 - 12.3 fL [facility] RBC 4.35 3.90 - 5.20 M/cumm [facility] MCV 92.0 81.3 - 96.4 fL [facility] MCH 29.2 27.1 - 33.3 pg [facility] MCHC 31.8(L) 32.3 - 35.7 g/dL [facility] RDW CV 14.4 11.1 - 14.9 % [facility] RDW SD 49.2(H) 35.7 - 48.1 fL [facility] NRBC abs 0.00 0.00 - 0.01 K/cumm [facility] Blood 08/03/2024 8:44 AM CDT 08/03/2024 7:16 PM CDT Saira KATE LAB BLOOD ORDERABLES Final Result Performing Organization Address City/[facility]/ZIP Co de Phone Number [facility] [id number] [place] [address] * Hepatitis panel, acute Blood (08/03/2024 8:44 AM CDT) Hep A IgM Nonreactive Nonreactive Comment: Interpretive Data: If Hep A IgM Ab is reported as Equivocal, a new sample should be drawn in two weeks for testing. Current interpretive data was last revised on 19. Hep B core IgM Nonreactive Nonreactive [facility] Comment: Interpretive Data If HepB Core IgM Ab is reported as Equivocal, a new sample should be drawn in two weeks for testing. Current interpretive data was last revised on 19. Hep C Ab Nonreactive Nonreactive [facility] Comment: Interpretive Data Nonreactive: Antibodies to HCV [...] last revised on 2019. HepBsAg Nonreactive Nonreactive [facility] Blood 08/03/2024 8:44 AM CDT 08/03/2024 7:16 PM CDT Saira KATE LAB MICROBIOLOGY - GENERAL ORDERABLES Final Result Performing Organization Address [facility] Co de Phone Number [facility] [address] [facility] [place] [address] * (ABNORMAL) Vitamin D 25 hydroxy (08/03/2024 8:44 AM CDT) Vitamin D 25-OH 24(L) 30 - 80 ng/mL Blood 08/03/2024 8:44 AM CDT 08/03/2024 7:16 PM CDT Saira KATE LAB BLOOD ORDERABLES Final Result Performing Organization Address [facility] Co de Phone Number [facility] [address] [facility] [place] [address] * RPR Blood (08/03/2024 8:44 AM CDT) Pathologist [facility] RPR Nonreactive Nonreactive Blood 08/03/2024 8:44 AM CDT 08/03/2024 7:16 PM CDT Saira KATE LAB MICROBIOLOGY - GENERAL ORDERABLES Final Result Performing Organization Address [facility] de Phone Number [facility] [address] [place] [address] * (ABNORMAL) TSH (08/03/2024 8:44 AM CDT) [facility] Thyroid Stimulating Hormone 32.70(H) 0.30 - 4.20 mcIUnit/mL Blood 08/03/2024 8:44 AM CDT 08/03/2024 7:16 PM CDT Saira KATE LAB BLOOD ORDERABLES Final Result Performing Organization Address [facility] de Phone Number [facility] [address] [place] [address] * Hemoglobin A1c (08/03/2024 8:44 AM CDT) [facility] Hgb A1C 5.4 4.0 - 5.6 % Estimated Average Glucose 108 mg/dL [facility] Comment: The ADA recommends reporting an estimated Average Glucose (eAG) with all Hemoglobin A1c results using the equation derived from a study of 507 normal and diabetic adults. Minority populations were underrepresented and children were not included. (Diabetes Care 31:9350-9206, 2008). The eAG is not equivalent to a fasting glucose. Blood 08/03/2024 8:44 AM CDT 08/03/2024 7:16 PM CDT Saira KATE LAB BLOOD ORDERABLES Final Result Performing Organization Address [facility]/State/ZIP Co de Phone Number [facility] [address] [employer] [place] [address] * Vitamin B12 (08/03/2024 8:44 AM CDT) Vitamin B12 298 230 - 1,250 pg/mL Blood 08/03/2024 8:44 AM CDT 08/03/2024 7:16 PM CDT Saira KATE LAB BLOOD ORDERABLES Final Result [facility] [address] Department [place] [address] * (ABNORMAL) Lipid panel (08/03/2024 8:44 AM [...] on 2017. Triglycerides 68 <=149 mg/dL [facility] Comment: Interpretive Data Ages < [...] LAB [place] [address] Department [place] [address] * (ABNORMAL) Comprehensive metabolic panel (08/03/2024 8:44 AM CDT) Pathologist [facility] Sodium 139 135 - 145 mmol/L Potassium, [...] LAB BLOOD ORDERABLES Final Result [facility] [address] Department [place] [address] * Screening Mammogram Bilateral W Sajan (05/16/2024 12:46 PM NEWSPAPER MANAGER) Anatomical Region Laterality Modality Breast Bilateral Mammography Impressions 05/16/2024 12:56 PM NEWSPAPER MANAGER BI-RADS ATLAS category (overall): 2 - Benign There is no mammographic evidence of malignancy. A 1 year screening mammogram is recommended. The patient has been or will be contacted. We recommend annual screening mammography for women at average risk of breast cancer beginning at age 40, based on guidelines of the [employer] (ACR Practice Parameter for the Performance of Screening and Diagnostic Mammography) and [place] [employer]. For women with and elevated risk of breast cancer, please refer to the ACR Practice Parameter for specific screening recommendations. The patient will be entered into a reminder system with a target due date of 1 year for her next screening exam. Narrative 05/16/2024 12:56 PM NEWSPAPER MANAGER Screening Mammogram Bilateral W Sajan: 05/16/24 The [...] E6/E7 (01/22/2016 12:38 PM CDT) [facility]INICAL INFORMATION [facility] HISTORICAL RESULTS Comment:Information not prov ided LMP: INFORMATION NOT PROVIDED [facility] HISTORICAL RESULTS PREV. PAP: [facility] HISTORICAL RESULTS Comment:INFORMATION NOT PROV IDED PREV. BX: [facility]ISTORICAL RESULTS Comment:INFORMATION NOT PROV IDED SOURCE: [facility] HISTORICAL RESULTS Comment:Information not prov ided STATEMENT OF ADEQUACY: [facility] HISTORICAL RESULTS Comment:Satisfactory for anand luation. Endocervical/transformation zone component present. Age and/or menstrual status not provided INTERPRETATION/RES ULT: [facility] HISTORICAL RESULTS Comment:Negative for intraep ithelial lesion or malignancy. COMMENT: [facility] HISTORICAL RESULTS Comment:This Pap test has be en evaluated with computer assisted technology. POT RELINER: [facility] HISTORICAL RESULTS Comment:MLO, CT(ASCP) CT scr eening location: [place] [address] [place] [address] 01/22/2016 12:3 8 PM CDT 01/28/2016 10:45 AM CDT Narrative [facility] HISTORICAL RESULTS - 01/28/2016 10:19 AM CDT FASTING: UNKNOWN PERFORMING LAB: , [facility] [address] [facility] [phone] Leigh Smith MD Nestor Oconnor MD LAB PATHOLOGY ORDERABLES F inal Result [facility] HISTORICAL RESULTS from Last 3 Months or Most Recently Relevant to Health Maintenance Insurance [facility] [place] [facility] [place] [address] [facility] [place] [address] Care Teams Auto Body Shop Manager Relationship Specialty Start Date End Date Saira Doty PA [address] [facility] [address] [place] [id number] PCP - General Internal Medicine 07/17/19 [place] [address] [place] [id number] 07/17/19
--- OUTSIDE RECORDS SUMMARY | 2024-10-10 09:02 | XMS_ITS | Clinical Summary ---
Author Organization [facility] Address [address] [place] [address] Care Team Providers Care Security Risk Analyst Name Role Phone Saira Doty PA-C Primary Care Provider [phone] Source Comments [facility],non-owned Affiliates and Associated Physician Practices is amultiple site organization consisting of ambulatory clinics and hospital sitesin [place], [place], [place] and [place]. This disclosure is being madepursuant to the Care Everywhere program and may not contain all informatio navailable regarding this patient. Last updated [facility] Allergies No known active allergies Medications * [...] on file Legal Sex Female 5:34 AM MATERIAL REQUIREMENTS PLANNING MANAGER Gender Identity Not on file Sexual [...] Health Maintenance Due Date Last Done Comments DTAP/TDAP/TD VACCINES (6 - Tdap) 09/11/1998 12/20/1992, 07/25/1989, 08/13/1988, Additional history exists HIV SCREENING 09/11/2002 HEPATITIS C SCREENING 09/07/2005 HEPATITIS B VACCINE (1 of 3 - 19+ 3-dose series) 09/11/2006 PNEUMOCOCCAL VACCINE (1 of 2 - PCV) 09/11/2006 PAP SMEAR 09/11/2008 COVID-19 VACCINE (3 - season) 2023 11/27/2020, 10/28/2020 DEPRESSION SCREENING 04/04/2024 INFLUENZA VACCINE (#1) 2024 , 01/02/2022, 01/03/2020 ZOSTER VACCINE (1 of 2) [...] patient's age to complete this topic Insurance [facility] Advance Directives * Full Code (Latest Code Status on File) Date Activated Date Inactivated Comments 11/03/2023 10:50 AM 11/04/2023 7:10 PM Care Teams Security Risk Analyst Relationship Specialty Start Date End Date Saira Doty PA-C [address] [place] [id number] PCP - General Physician News Anchor 10/14/23
--- OUTSIDE RECORDS SUMMARY | 2024-10-10 09:02 | XMS_ITS | Encounter Summary ---
Author Organization [facility] Address [address] [place] [address] Care Team Providers Care Yoke Presser Name Role Phone Saira Doty Primary Care Provider [phone] Wai Ozuna MD Unavailable [phone] Encounter Details Date Type Department Care Team (Late st Contact Info) Description 11/15/2019 Telephone [facility] [address] [place] [address] Room 3420 (Third Floor) [place] [address] Nahed Awad RN Social History Tobacco Use Types Packs/Day Years Used Date Smoking Tobacco: Every Day Smokeless Tobacco: Never Alcohol Use Standard Drinks/Week Comments Yes 0 (1 standard drink = 0.6 oz pur e alcohol) PHQ-2 Answer Date Recorded PHQ-2 Score 0 07/23/2019 Comments Unknown Sex and Gender Information Value Date Recorded Sex Assigned at Not on file Legal Sex Female 5:40 PM 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 05/21/2020 05/21/2020 06/04/2020 3:0 7 AM MASTER MOTORCYCLE TECHNICIAN documented as of this encounter Care Teams Yoke Presser Relationship Specialty Start Date End Date Saira Doty PA [address] [place] [address] PCP - General Internal Medicine 07/17/19 Wai Ozuna MD [address] [place] [address] 07/17/19 documented as of this encounter
--- OUTSIDE RECORDS SUMMARY | 2024-10-10 09:02 | XMS_ITS | Clinical Summary ---
Author Organization [facility] [address] [facility] Address [address] [place] [address] Care Team Providers Care Doughnut Fryer Name Role Phone Saira Doty Primary Care Provider [phone] Wai Ozuna MD Unavailable [phone] Allergies No known active allergies Medications ergocalciferol [...] of 2023. Continue levothyroxine. Was removed at [facility] by Dr. Bladimir camp. Plans to follow [...] 03/14/2020 Assessment & Plan (06/09/2020 8:06 PM TRANSFER PUMPER): Pathology shows benign changes. She has followup with Dr. 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 She has multiple masses and is always worried about her medical concerns so I want her to discuss options. Cigarette smoker 03/13/2020 Assessment & Plan (03/13/2022 7:21 PM TRANSFER PUMPER): Encouraged smoking cessation. Discussed 3 minutes. Reviewed options for assistance with cessation. Reviewed long lines operator sequela associated with smoking. Pt declines assistance [...] aid Assessment & Plan (06/09/2020 8:07 PM TRANSFER PUMPER): Encouraged smoking cessation. Discussed 3 minutes. Reviewed options for assistance with cessation. Reviewed long lines operator sequela associated with smoking. Pt declines assistance at this time but may contact the office at anytime for further help as they desire. Assessment & Plan (03/14/2020 4:58 PM TRANSFER PUMPER): Encouraged smoking cessation. Discussed 3 minutes. Reviewed options for assistance with cessation. Reviewed long lines operator sequela associated with smoking. Pt declines assistance at this time but may contact the office at anytime for further help as they desire. Anxiety 11/29/2019 Assessment & Plan (01/20/2024 8:22 PM CDT): Anxiety symptoms have improved with removal of the nodular thyroid. She states she is feeling good without medication currently. Continue to monitor Assessment & Plan (03/13/2022 7:21 PM TRANSFER PUMPER): Patient has significant anxiety but prefers to not use any medication. May call at any time if changes her mind. Assessment & Plan (12/01/2020 8:42 AM CDT): Patient is still anxious about her medical concerns. She doesn't want medication Assessment & Plan (03/14/2020 4:58 PM TRANSFER PUMPER): Discussed again starting an anxiety medication due [...] 08/22/2019 Assessment & Plan (03/13/2022 7:20 PM TRANSFER PUMPER): Continue per Dr. Damon for management of [...] cytology results 2) Plan follow-up with primary Scarf And Anneal Operator (Dr. Damon) Vitamin D deficiency 08/22/2019 Assessment & Plan (04/02/2024 4:49 PM TRANSFER PUMPER): Supplement Assessment & Plan (01/20/2024 8:22 PM CDT): Supplement Assessment & Plan (03/13/2022 7:20 PM TRANSFER PUMPER): Supplement Assessment & Plan (03/14/2020 4:54 PM TRANSFER PUMPER): Encouraged calcium and vitamin D Assessment & [...] 08/05/2024 Assessment & Plan (04/02/2024 4:49 PM TRANSFER PUMPER): Patient complains of suprapubic cramps. She does [...] screenings. Assessment & Plan (03/13/2022 7:21 PM TRANSFER PUMPER): Encouraged healthy lifestyle, good nutrition and exercise. Encouraged Calcium and Vitamin D and weight bearing exercise for bone health. Reviewed immunizations Reviewed age appropirate screenings. BMI 28.0-28.9,adult 03/03/2022 07/27/19 25 Assessment & Plan (03/26/2024 2:00 PM TRANSFER PUMPER): Discussed the patient's BMI. The BMI is above average. BMI management plan is completed. BMI Follow-up includes: nutrition counseling, exercise counseling and education provided. Assessment & Plan (01/20/2024 8:22 PM CDT): Weight/BMI is in healthy range. Continue healthy lifestyle to maintain. Assessment & Plan (03/03/2022 1:38 PM TRANSFER PUMPER): Weight/BMI is in healthy range. Continue healthy [...] her health care concerns. Offered referral to compliance monitor so that she can speak with specialist [...] 021 Assessment & Plan (06/09/2020 1:30 PM TRANSFER PUMPER): Weight/BMI is in healthy range. Continue healthy lifestyle to maintain. BMI 25.0-25.9,adult 03/13/2020 06/10/19 21 Assessment & Plan (03/13/2020 8:54 AM TRANSFER PUMPER): Weight/BMI is in healthy range. Continue healthy lifestyle to maintain. Encounter for management and injection of depo-Provera 12/14/2019 06/18/2021 Assessment & Plan (12/01/2020 8:41 AM CDT): Injected today. Still spotting, but ok with this side effect Assessment & Plan (06/09/2020 8:07 PM TRANSFER PUMPER): Depo given in office with office supply. Next one due: August 25 - Assessment & Plan (03/14/2020 4:59 PM TRANSFER PUMPER): Depo injected today. Next injection due 05/29 [...] Type Department Care Team Description 10/04/[address] [place] [phone] Saira Doty PA Medical Question/Miscellaneous 09/11/2024 Orders Only [address] [place] [phone] Provider, MD Loren 08/07/[address] [place] [phone] Saira Doty PA 08/06/2024 Orders Only [address] [place] [address] Saira Doty PA Postoperative hypothyroidism (Primary Dx) 08/06/[address] [place] [address] Saira Doty PA Test Results 08/04/2024 Results Follow-Up [facility] [address] [place] [address] Saira Doty PA CBC with auto differential, Comprehensive metabolic panel, Hemoglobin A1c, Additional followed-up results: 9 08/03/2024 8:45 AM CDT Lab [facility] Out[facility] Lab at [address] [phone] 08/03/2024 8:44 AM CDT - 08/03/2024 11:59 PM CDT Hospital Encounter [address] [address] Fatigue, unspecified type; Diabetes mellitus screening; Lipid screening; Vitamin D deficiency; Postoperative hypothyroidism; Screening examination for STD (sexually transmitted disease) Discharge Disposition: Discharge to home or self care 07/26/2024 7:30 AM CDT Office Visit [facility] Medicine [address] [place] [address] Saira Doty PA Postoperative hypothyroidism (Primary Dx); [...] on file Legal Sex Female 5:40 PM TRANSFER PUMPER Gender Identity Not on file Sexual Orientation Not on file 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 Not on file Not on file Obstetrics History Para Term AB IAB SAB Ectopic Multiple Livin g Live Births 1 1 1 Date Outcome GA Total Labor [...] Covid-19 Vaccine ( season) 2023 11/27/2020, 10/28/2020 Influenza Vaccine (#1) 2024 , 01/26/2023, 01/02/2022, Additional history exists Regular Well Visit/Exam 18-64 01/12/2025 01/13/2024, 03/03/2022, 08/18/2021, Additional history exists Breast Cancer Screening-Mammogram 05/16/2025 05/16/2024, 05/03/2023, 02/29/2020, Additional history exists Depression Screening 07/26/2025 07/26/2024, 03/26/2024, 01/13/2024, Additional history exists Hepatitis C Screening Completed [...] Read Routine (OP Routine) 05/16/2024 12:46 PM TRANSFER PUMPER Breast cancer screening by mammogram THINPREP IMAGING [...] left breast BI-RADS 2 BENIGN Historical Provider MD LAM MAMMO PROCEDURES Edit ed Result - Final * N. gonorrhoeae/C. trachomatis Amplification Urine (08/03/2024 8:44 AM CDT) Pathologist [facility] C. trachomatis Not Detected [facility] Comment:Testing performed by : [facility], [address] [place] [address]., [address] N. gonorrhoeae Not Detected [facility] Comment: Interpretive Data This assay detects Chlamydia trachomatis and Neisseria gonorrhoeae by nucleic acid amplification testing (NAAT). This assay has been cleared by the [place] Food and Drug administration. The performance characteristics of this test have been verified by the [facility] Molecular Infectious Disease laboratory. The performance characteristics of this test have not been evaluated in individuals less than 14 years of age. Current Interpretive Data was last revised on 2023. Testing performed by: [facility], [address] [place]., [address] Urine (None) 08/03/2024 8:44 AM CDT 08/04/2024 12:46 AM CDT S[facility]a [facility] MICROBIOLOGY - GENERAL ORDERABLES Final Result [facility] [address] Department [place] [address] [facility] * eGFR (08/03/2024 8:44 AM CDT) eGFR [...] 8:44 AM CDT 08/03/2024 7:49 PM CDT us Saira [facility] BLOOD ORDERABLES Final Result [facility] [address] Department [place] [address] * (ABNORMAL) Differential, auto (08/03/2024 8:44 AM CDT) Neutrophil abs 5.97 1.50 - 6.50 K/cumm Imm gran abs 0.03 0.00 - 0.10 K/cumm [facility] Lymphocyte abs 3.94(H) 0.80 - 3.30 K/cumm [facility] Monocyte abs 0.64 0.20 - 0.80 K/cumm [facility] Eosinophil abs 0.07 0.00 - 0.50 K/cumm [facility] Basophil abs 0.05 0.00 - 0.10 K/cumm [facility] Neutrophil pct 55.7 % [facility] Comment: Interpretive Data Percent cell count reference ranges are not reported, since discordance with absolute values may lead to misinterpretation of CBC data. Current Interpretive Data was last revised on 2017. Imm gran pct 0.3 % [facility] Comment: Interpretive Data Percent cell count reference ranges are not reported, since discordance with absolute values may lead to misinterpretation of CBC data. Current Interpretive Data was last revised on 2017. Lymphocyte pct 36.8 % [facility] Comment: Interpretive Data Percent cell count reference ranges are not reported, since discordance with absolute values may lead to misinterpretation of CBC data. Current Interpretive Data was last revised on 2017. Monocyte pct 6.0 % [facility] Comment: Interpretive Data Percent cell count reference ranges are not reported, since discordance with absolute values may lead to misinterpretation of CBC data. Current Interpretive Data was last revised on 2017. Eosinophil pct 0.7 % [facility] Comment: Interpretive Data Percent cell count reference ranges are not reported, since discordance with absolute values may lead to misinterpretation of CBC data. Current Interpretive Data was last revised on 2017. Basophil pct 0.5 % [facility] Comment: Interpretive Data Percent cell count reference ranges are not reported, since discordance with absolute values may lead to misinterpretation of CBC data. Current Interpretive Data was last revised on 2017. Blood 08/03/2024 8:44 AM CDT 08/03/2024 7:16 PM CDT Saira [facility] BLOOD ORDERABLES Final Result [facility] [address] Department [place] [address] * HIV 1/2 Antibody plus p24 Antigen Blood (08/03/2024 8:44 AM CDT) HIV 1/2 ab + p24 ag Nonreactive Nonreactive Comment: Nonreactive for HIV-1 antigen and HIV-1/HIV-2 antibodies. No laboratory evidence of HIV infection. If acute HIV infection is suspected, consider testing for HIV-1 RNA. Blood 08/03/2024 8:44 AM CDT 08/03/2024 7:16 PM CDT Saira [facility] MICROBIOLOGY - GENERAL ORDERABLES Final Result Performing Organization Address [facility] Co de Phone Number [facility] [address] [employer] [place], [place] [id number] * (ABNORMAL) CBC with auto differential (08/03/2024 8:44 AM CDT) [facility] WBC 10.70(H) 3.80 - 9.90 K/cumm Hgb 12.7 11.9 - 15.5 g/dL [facility] Hct 40.0 35.6 - 45.5 % [facility] Plt 267 150 - 400 K/cumm [facility] MPV 9.5 9.1 - 12.3 fL [facility] RBC 4.35 3.90 - 5.20 M/cumm [facility] MCV 92.0 81.3 - 96.4 fL [facility] MCH 29.2 27.1 - 33.3 pg [facility] MCHC 31.8(L) 32.3 - 35.7 g/dL [facility] RDW CV 14.4 11.1 - 14.9 % [facility] RDW SD 49.2(H) 35.7 - 48.1 fL [facility] NRBC abs 0.00 0.00 - 0.01 K/cumm [facility] Blood 08/03/2024 8:44 AM CDT 08/03/2024 7:16 PM CDT Saira [facility] BLOOD ORDERABLES Final Result Performing Organization Address [facility] Co de Phone Number [facility] [address] [place] [address] * Hepatitis panel, acute Blood (08/03/2024 8:44 AM CDT) [facility] Hep A IgM Nonreactive Nonreactive Comment: Interpretive Data: If Hep A IgM Ab is reported as Equivocal, a new sample should be drawn in two weeks for testing. Current interpretive data was last revised on 19. Hep B core IgM Nonreactive Nonreactive [facility] Comment: Interpretive Data If HepB Core IgM Ab is reported as Equivocal, a new sample should be drawn in two weeks for testing. Current interpretive data was last revised on 19. Hep C Ab Nonreactive Nonreactive [facility] Comment: Interpretive Data Nonreactive: Antibodies to HCV [...] last revised on 2019. HepBsAg Nonreactive Nonreactive [facility] Blood 08/03/2024 8:44 AM CDT 08/03/2024 7:16 PM CDT S[facility]a [facility] MICROBIOLOGY - GENERAL ORDERABLES Final Result Performing Organization Address City/[facility]/ZIP Co de Phone Number [facility] [address] [place] [address] * (ABNORMAL) Vitamin D 25 hydroxy (08/03/2024 8:44 AM CDT) Pathologist [facility] Vitamin D 25-OH 24(L) 30 - 80 ng/mL Blood 08/03/2024 8:44 AM CDT 08/03/2024 7:16 PM CDT Saira [facility] BLOOD ORDERABLES Final Result [facility] [address] [place] [address] * RPR Blood (08/03/2024 8:44 AM CDT) Pathologist [facility] RPR Nonreactive Nonreactive Blood 08/03/2024 8:44 AM CDT 08/03/2024 7:16 PM CDT Saira [facility] MICROBIOLOGY - GENERAL ORDERABLES Final Result Performing Organization Address [facility] Co de Phone Number [facility] [address] [facility] [place] [address] * (ABNORMAL) TSH (08/03/2024 8:44 AM CDT) Pathologist [facility] Thyroid Stimulating Hormone 32.70(H) 0.30 - 4.20 mcIUnit/mL Blood 08/03/2024 8:44 AM CDT 08/03/2024 7:16 PM CDT Saira [facility] BLOOD ORDERABLES Final Result Performing Organization Address [facility] de Phone Number [facility] [address] [facility] [place] [address] * Hemoglobin A1c (08/03/2024 8:44 AM CDT) [facility] Hgb A1C 5.4 4.0 - 5.6 % Estimated Average Glucose 108 mg/dL [facility] Comment: The ADA recommends reporting an estimated Average Glucose (eAG) with all Hemoglobin A1c results using the equation derived from a study of 507 normal and diabetic adults. Minority populations were underrepresented and children were not included. (Diabetes Care 31:5804-9522, 2008). The eAG is not equivalent to a fasting glucose. Blood 08/03/2024 8:44 AM CDT 08/03/2024 7:16 PM CDT Saira [facility] BLOOD ORDERABLES Final Result Performing Organization Address [facility] Co de Phone Number [facility] [address] [place] [address] * Vitamin B12 (08/03/2024 8:44 AM CDT) Pathologist [facility] Vitamin B12 298 230 - 1,250 pg/mL Blood 08/03/2024 8:44 AM CDT 08/03/2024 7:16 PM CDT us Saira [facility] BLOOD ORDERABLES Final Result [facility] [address] Department [place] [address] * (ABNORMAL) Lipid panel (08/03/2024 8:44 AM [...] revised on 2017. Chol/HDL ratio 4 [facility] Blood 08/03/2024 8:44 AM CDT 08/03/2024 7:16 PM CDT us Saira [facility] BLOOD ORDERABLES Final Result [facility] [address] Department [place] [address] * (ABNORMAL) Comprehensive metabolic panel (08/03/2024 8:44 [...] LAB BLOOD ORDERABLES Final Result [facility] [address] Department [place] [address] * Screening Mammogram Bilateral W Sajan (05/16/2024 12:46 PM TRANSFER PUMPER) Anatomical Region Laterality Modality Breast Bilateral Mammography Impressions 05/16/2024 12:56 PM TRANSFER PUMPER BI-RADS ATLAS category (overall): 2 - Benign There is no mammographic evidence of malignancy. A 1 year screening mammogram is recommended. The patient has been or will be contacted. We recommend annual screening mammography for women at average risk of breast cancer beginning at age 40, based on guidelines of the [employer] (ACR Practice Parameter for the Performance of Screening and Diagnostic Mammography) and [employer]. For women with and elevated risk of breast cancer, please refer to the ACR Practice Parameter for specific screening recommendations. The patient will be entered into a reminder system with a target due date of 1 year for her next screening exam. Narrative 05/16/2024 12:56 PM TRANSFER PUMPER Screening Mammogram Bilateral W Sajan: 05/16/24 The [...] E6/E7 (01/22/2016 12:38 PM CDT) CLINICAL INFORMATION [facility] HISTORICAL RESULTS Comment:Information not prov ided LMP: INFORMATION NOT PROVIDED [facility] HISTORICAL RESULTS PREV. PAP: [facility] HISTORICAL RESULTS Comment:INFORMATION NOT PROV IDED PREV. BX: [facility]IST[facility] RESULTS Comment:INFORMATION NOT PROV IDED SOURCE: [facility]IST[facility]ICAL RESULTS Comment:Information not prov ided STATEMENT OF ADEQUACY: [facility] HISTORICAL RESULTS Comment:Satisfactory for anand luation. Endocervical/transformation zone component present. Age and/or menstrual status not provided INTERPRETATION/RES ULT: [facility] HISTORICAL RESULTS Comment:Negative for intraep ithelial lesion or malignancy. COMMENT: [facility] HISTORICAL RESULTS Comment:This Pap test has be en evaluated with computer assisted technology. FINANCIAL SALES MANAGER: [facility] HISTORICAL RESULTS Comment:MLO, CT(ASCP) CT scr eening location: [place] [address] [place] [address] 01/22/2016 12:3 8 PM CDT 01/28/2016 10:45 AM CDT Narrative [facility] HISTORICAL RESULTS - 01/28/2016 10:19 AM CDT FASTING: UNKNOWN PERFORMING LAB: , [facility] [address] [facility] [address] Leigh Smith MD Nestor Oconnor MD LAB PATHOLOGY ORDERABLES F inal Result Performing Organization Address City/State/[facility] Co de Phone Number [facility] HISTORICAL RESULTS from Last 3 Months or Most Recently Relevant to Health Maintenance Insurance [facility] [place] [facility] Care Teams Doughnut Fryer Relationship Specialty Start Date End Date Saira Doty PA [address] [place] [address] PCP - General Internal Medicine 07/17/19 Wai Ozuna MD [address] [place] [address] 07/17/19
--- OUTSIDE RECORDS SUMMARY | 2024-10-10 09:02 | XMS_ITS | Encounter Summary ---
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
--- OUTSIDE RECORDS SUMMARY | 2024-10-10 09:02 | XMS_ITS | Encounter Summary ---
Author Organization [facility] Healthcare Address [address] [place] [address] Care Team Providers Care Cartography Technician Name Role Phone Saira Doty Primary Care Provider [phone]- [phone] Wai Ozuna MD Unavailable [phone] Reason for Visit * Reason Onset Date Comments Medical Question/Miscellaneous 10/04/2024 Encounter Details Date Type Department Care Team (Late st Contact Info) Description 10/04/2024 Telephone [facility] Family Medicine [address] [facility] [address] [place] [address] Saira Doty PA [address] [address] Medical Question/Miscellaneous Social History Tobacco Use Types Packs/Day Years [...] on file 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 Scheduled for 10/23. She said she is coming in for the pap only, and she has already had her physical, so I scheduled as established patient. Does message need to be routed? Yes-FYI Only documented in this encounter Plan of Treatment Not on file documented as of this encounter Visit Diagnoses Not on filedocumented in this encounter Care Teams Cartography Technician Relationship Specialty Start Date End Date Saira Doty PA [address] [place] [address] PCP - General Internal Medicine 07/17/19 Wai Ozuna MD [address] [place] [address] 07/17/19 documented as of this encounter
== END 2024-10-10 08:57 | disposition home or self-care (01) ==
LOC: ANHIMG 08:56
PROVIDERS: PCP Physician Assistant; Visit Provider Surgery
DX: N61.1 Abscess of the breast and nipple (principal)
CPT/HCPCS: 76642

== ENCOUNTER 2025-01-21 10:04 | Outpatient (CLI) | payer OTHER, SELFPAY ==
--- NOTE | ~2025-01-21 | US_ITS ---
US breast LT limited Indication: Follow-up breast abscess Procedure: High-resolution Limited ultrasound of the left breast Comparison: Ultrasound dated 10/10/2024 Findings: There is a small subdermal fluid collection at C7-8:00, in the subareolar location measuring 3.27 x 2.54 x 0.55 cm cm compared with 2.7 x 1.3 x 0.3 cm on prior examination. Interval increase in size of the subdermal phlegmonous change. Impression: 1: Interval worsening with increased size of phlegmonous change /abscess cavity in the left subareolar location. Recommendation: Recommend follow-up clinical management to resolution. Consider aspiration of the abscess cavity which can be performed under ultrasound guidance. BI-RADS CATEGORY 2 - BENIGN FINDINGS Reviewed, dictated and finalized at location B. Impression: 1: Interval worsening with increased size of phlegmonous change /abscess cavity in the left subareolar location. Recommendation: Recommend follow-up clinical management to resolution. Consider aspiration of the abscess cavity which can be performed under ultrasound tyrell nce. BI-RADS CATEGORY 2 - BENIGN FINDINGS
--- OUTSIDE RECORDS SUMMARY | 2025-01-21 11:37 | XMS_ITS | Encounter Summary ---
Author Organization [facility] Healthcare Address [address] [place] [address] Care Team Providers Care Fashion Director Party Plan Sales Name Role Phone Saira Doty Primary Care Provider [phone]- [phone] Wai Ozuna MD Unavailable [phone] Encounter Details Date Type Department Care Team (Late st Contact Info) Description 11/15/2019 Telephone [facility] Occupatiuonal Health [address] [address] Nahed Awad RN Social History Tobacco Use Types Packs/Day Years Used Date Smoking Tobacco: Every Day Smokeless Tobacco: Never Alcohol Use Standard Drinks/Week Comments Yes 0 (1 standard drink = 0.6 oz pur e alcohol) PHQ-2 Answer Date Recorded PHQ-2 Score 0 07/23/2019 Comments Unknown Sex and Gender Information Value Date Recorded Sex Assigned at Not on file Legal Sex Female 5:40 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 Gender Identity Not on file Sexual Orientation Not on file 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 05/21/2020 05/21/2020 06/04/2020 3:0 7 AM INTERNAL 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 documented as of this encounter Care Teams Fashion Director Party Plan Sales Relationship Specialty Start Date End Date Saira Doty PA [address] [place] [address] PCP - General Internal Medicine 07/17/19 Wai Ozuna MD [address] [place] [address] 07/17/19 documented as of this encounter
--- OUTSIDE RECORDS SUMMARY | 2025-01-21 11:37 | XMS_ITS | Encounter Summary ---
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 Gender Identity Not on file Sexual Orientation Not on file 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 Not on file Not on file documented as of this encounter Plan of Treatment Not on file documented as of this encounter Procedures Procedure Name Priority Date/Time Associated Diagnosis Comments SCAN - RADIOLOGY/IMAGING 10/10/2024 documented in this encounter Results * SCAN - RADIOLOGY/IMAGING (10/10/2024) Anatomical Region Laterality Modality Other us Provider Scanning Final Result documented in this encounter Visit Diagnoses Not on filedocumented in this encounter Care Teams Multi Care Technician Relationship Specialty Start Date End Date Saira Doty PA [address] [place] [address] PCP - General Internal Medicine 07/17/19 Wai Ozuna MD [address] [place] [address] 07/17/19 documented as of this encounter
--- OUTSIDE RECORDS SUMMARY | 2025-01-21 11:37 | XMS_ITS | Clinical Summary ---
Author Organization [facility] [address] [facility] Address [address] [place] [address] Care Team Providers Care Flying Ii Instructor Name Role Phone Saira Doty Primary Care Provider [phone] Wai Ozuna MD Unavailable [phone] Allergies No known active allergies Medications ergocalciferol (VITAMIN D) 50,000 unit capsuleIndications :Vitamin D deficiency Take 1 capsule (50,000 Units total) by mouth once a week 4 capsule 11 03/20/20 24 025 Active Additional Information Patient not taking.Reported on 10/23/2024 levothyroxine (SYNTHROID) 125 mcg tabletIndications: Postoperative hypothyroidism Take 1 tablet (125 mcg total) by mouth daily 90 tablet 1 11/01/19 25 Active Active Problems Problem Noted Date Diagnosed Date Screening examination for ST D (sexually transmitted disease) 08/05/2024 Postoperative hypothyroidism 01/20/2024 Assessment & Plan (01/20/2024 8:21 PM CDT): Patient is status post thyroidectomy in November of 2023. Continue levothyroxine. Was removed at [facility] by Dr. Bladimir camp. Plans to follow here for management of the labs. Plan to repeat TSH in the next few months for stability Breast cancer screening by mammogram 01/20/2024 Assessment & Plan (01/20/2024 8:23 PM CDT): Mammogram order provided BMI 29.0-29.9,adult 03/03/2022 Assessment & Plan (10/23/2024 7:59 AM CDT): Weight/BMI is in healthy range. Continue healthy lifestyle to maintain. Assessment & Plan (03/26/2024 2:00 PM ROLL SETTER): Discussed the patient's BMI. The BMI is above average. BMI management plan is completed. BMI Follow-up includes: nutrition counseling, exercise counseling and education provided. Assessment & Plan (01/20/2024 8:22 PM CDT): Weight/BMI is in healthy range. Continue healthy lifestyle to maintain. Assessment & Plan (03/03/2022 1:38 PM ROLL SETTER): Weight/BMI is in healthy range. Continue healthy lifestyle to maintain. Fibrocystic disease of breast 08/25/2020 control counseling [...] 03/14/2020 Assessment & Plan (06/09/2020 8:06 PM ROLL SETTER): Pathology shows benign changes. She has followup with Dr. 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 She has multiple masses and is always worried about her medical concerns so I want her to discuss options. Cigarette smoker 03/13/2020 Assessment & Plan (03/13/2022 7:21 PM ROLL SETTER): Encouraged smoking cessation. Discussed 3 minutes. Reviewed options for assistance with cessation. Reviewed terminal clerk sequela associated with smoking. Pt declines assistance at this time but may contact the office at anytime for further help as they desire. Assessment & Plan (08/24/2021 1:50 AM CDT): Encouraged smoking cessation. Discussed 3 minutes. Reviewed options for assistance with cessation. Reviewed fpc sequela associated with smoking. Pt declines assistance at this time but may contact the office at anytime for further help as they desire. Assessment & Plan (06/18/2021 10:02 PM CDT): Encouraged smoking cessation. Discussed 3 minutes. Reviewed options for assistance with cessation. Reviewed fpc sequela associated with smoking. Pt declines assistance at this time but may contact the office at anytime for further help as they desire. Reviewed risk of OCP that her estrogen based with smokers over 35. Assessment & Plan (12/01/2020 8:42 AM CDT): Encouraged smoking cessation. Discussed 3 minutes. Reviewed options for assistance with cessation. Reviewed fpc sequela associated with smoking. Pt declines assistance at this time but may contact the office at anytime for further help as they desire. Assessment & Plan (08/27/2020 8:17 AM CDT): Advised smoking cessation, she declines aid Assessment & Plan (06/09/2020 8:07 PM ROLL SETTER): Encouraged smoking cessation. Discussed 3 minutes. Reviewed options for assistance with cessation. Reviewed fpc sequela associated with smoking. Pt declines assistance at this time but may contact the office at anytime for further help as they desire. Assessment & Plan (03/14/2020 4:58 PM ROLL SETTER): Encouraged smoking cessation. Discussed 3 minutes. Reviewed options for assistance with cessation. Reviewed terminal clerk sequela associated with smoking. Pt declines assistance at this time but may contact the office at anytime for further help as they desire. Anxiety 11/29/2019 Assessment & Plan (01/20/2024 8:22 PM CDT): Anxiety symptoms have improved with removal of the nodular thyroid. She states she is feeling good without medication currently. Continue to monitor Assessment & Plan (03/13/2022 7:21 PM ROLL SETTER): Patient has significant anxiety but prefers to not use any medication. May call at any time if changes her mind. Assessment & Plan (12/01/2020 8:42 AM CDT): Patient is still anxious about her medical concerns. She doesn't want medication Assessment & Plan (03/14/2020 4:58 PM ROLL SETTER): Discussed again starting an anxiety medication due [...] 08/22/2019 Assessment & Plan (03/13/2022 7:20 PM ROLL SETTER): Continue per Dr. Damon for management of [...] cytology results 2) Plan follow-up with primary Detective And Intelligence Analyst (Dr. Damon) Vitamin D deficiency 08/22/2019 Assessment & Plan (04/02/2024 4:49 PM ROLL SETTER): Supplement Assessment & Plan (01/20/2024 8:22 PM CDT): Supplement Assessment & Plan (03/13/2022 7:20 PM ROLL SETTER): Supplement Assessment & Plan (03/14/2020 4:54 PM ROLL SETTER): Encouraged calcium and vitamin D Assessment & [...] Problem Noted Date Diagnosed Date Resolved Date Obesity (BMI 30-39.9) 07/26/20242024 Assessment & Plan (07/26/2024 7:30 AM CDT): Discussed the patients BMI: The BMI is above average BMI management is complete. BMI follow-up includes: Nutrition Counseling and education provided Hematuria 03/26/2024 08/05/2024 Assessment & Plan (04/02/2024 4:49 PM ROLL SETTER): Patient complains of suprapubic cramps. She does [...] Patient is in agreement with the plan Diabetes mellitus screening 01/20/2024 10/23/2024 Assessment & Plan (01/20/2024 8:23 PM CDT): Check labs Lipid screening 01/20/2024 10/23/2024 Assessment & Plan (01/20/2024 8:23 PM CDT): Check labs Fatigue 01/20/2024 10/23/2024 Assessment & Plan (01/20/2024 8:23 PM CDT): Probably multifactorial. Check labs and followup to re-evaluate Annual physical exam 03/13/2022 025 Assessment & Plan (01/20/2024 8:22 PM CDT): Encouraged healthy lifestyle, good nutrition and exercise. Encouraged Calcium and Vitamin D and weight bearing exercise for bone health. Reviewed immunizations Reviewed age appropirate screenings. Assessment & Plan (03/13/2022 7:21 PM ROLL SETTER): Encouraged healthy lifestyle, good nutrition and exercise. Encouraged Calcium and Vitamin D and weight bearing exercise for bone health. Reviewed immunizations Reviewed age appropirate screenings. Encounter for routine gyneco logical examination with [...] her health care concerns. Offered referral to wheelchair van operator first responder so that she can speak with specialist [...] 021 Assessment & Plan (06/09/2020 1:30 PM ROLL SETTER): Weight/BMI is in healthy range. Continue healthy lifestyle to maintain. BMI 25.0-25.9,adult 03/13/2020 06/10/19 21 Assessment & Plan (03/13/2020 8:54 AM ROLL SETTER): Weight/BMI is in healthy range. Continue healthy lifestyle to maintain. Encounter for management and injection of depo-Provera 12/14/2019 06/18/2021 Assessment & Plan (12/01/2020 8:41 AM CDT): Injected today. Still spotting, but ok with this side effect Assessment & Plan (06/09/2020 8:07 PM ROLL SETTER): Depo given in office with office supply. Next one due: August 25 - Assessment & Plan (03/14/2020 4:59 PM ROLL SETTER): Depo injected today. Next injection due 05/29 [...] Reviewed options for assistance with cessation. Reviewed fpc sequela associated with smoking. Pt declines assistance [...] Encounters Date Type Department Care Team Description 10/31/2024 Orders Only [facility] Medical [facility] Family Medicine [facility] [place] [address] Saira Doty PA Postoperative hypothyroidism (Primary Dx) 10/31/2024 Telephone [facility] Family Medicine [address] [facility] [address] [place] [address] Saira Doty PA 10/29/2024 9:30 AM CDT Lab [facility] Outpatient Lab at [address] [id number] 10/29/2024 9:18 AM CDT - 10/29/2024 11:59 PM CDT [place] [address] Postoperative hypothyroidism Discharge Disposition: Discharge to home or self care 10/29/2024 Results Follow-Up [facility] [address] [place] [address] Saira Doty PA TSH 10/24/2024 Results Follow-Up [address] [place] [address] Saira Doty PA US Breast Left Limited 10/24/2024 Results Follow-Up [address] [place] [address] Saira Doty PA SURESWAB(R), CT/NG, T VAGINALIS, Pap and HPV, reflex to HPV Genotypes 10/23/2024 8:30 AM CDT Office Visit [address] [place] [address] Saira Doty PA Encounter for routine gynecological examination with Papanicolaou smear of cervix (Primary Dx); Cervical cancer screening; Screening examination for STD (sexually transmitted disease); control counseling; Cigarette smoker; Postoperative hypothyroidism; BMI 29.0-29.9,adult from Last 3 Months Immunizations Immunization Administration [...] often do you have a drink containing alc ohol? Monthly or less 10/23/2024 Q2: How many drinks containi ng alcohol do you have on a typical day when you are drinking? 1 or 2 10/23/2024 Q3: How often do you have si x or more drinks on one occasion? 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 Not on file Not on file Obstetrics History Para Term AB IAB SAB Ectopic Multiple Livin g Live Births 1 1 1 Date Outcome GA Total Labor Labor/2nd/3rd Weight Sex Type Anes PTL Renata A1 A5 Name Clin Term Last Filed Vital Signs Vital Sign Reading Time Taken Comments Blood Pressure 110/68 10/23/2024 7:57 AM CDT Pulse 77 10/23/2024 7:57 AM CDT Temperature 37 C (98.6 F) 10/23/2024 7:57 AM CDT Respiratory Rate 14 01/13/2024 11:02 AM CDT Oxygen Saturation 99% 10/23/2024 7:57 AM CDT Inhaled Oxygen Concentration - - Weight 71.2 kg (157 lb) 10/23/2024 7:57 AM CDT Height 154.9 cm (5' 1) 10/23/2024 7:57 AM CDT Body Mass Index 29.66 10/23/2024 7:57 AM CDT Plan of Treatment Health Maintenance Due Date Last Done Comments DTaP/Tdap/Td Vaccine (6 - Tdap) 09/11/1998 12/20/1992, 07/25/1989, 08/13/1988, Additional history exists Varicella Vaccines (1 of 2 - 13+ 2-dose series) 09/11/2000 Hepatitis B Screening 09/11/2005 Pneumococcal vaccine <65 (1 of 2 - PCV) 09/11/2006 HPV Vaccines (1 - 3-dose SCD M series) 09/11/2014 Covid-19 Vaccine ( - 2024-2 6 season) 2024 11/27/2020, 10/28/2020 Influenza Vaccine (#1) 2024 , 01/26/2023, 01/02/2022, Additional history exists Breast Cancer Screening-Mammogram 05/16/2025 05/16/2024, 05/03/2023, 02/29/2020, Additional history exists Depression Screening 10/23/2025 10/23/2024, 07/26/2024, 03/26/2024, Additional history exists Regular Well Visit/Exam 18-64 10/23/2025, 01/13/2024, 03/03/2022, Additional history exists Cervical Cancer Screening 10/23/2029 10/23/2024, Hepatitis C Screening Completed 08/03/2024 Procedures Procedure Name Priority Date/Time Associated Diagnosis Comments TSH Routine 10/29/2024 9:18 AM CDT Postoperative hypothyroidism SURESWAB(R), CT/NG, T VAGINALIS Routine 10/23/2024 8:55 AM CDT Screening examination for STD (sexually transmitted disease) PAP AND HPV, REFLEX TO HPV GENOTYPES Routine 10/23/2024 8:38 AM CDT Cervical cancer screening HEPATITIS PANEL, ACUTE Routine 08/03/2024 8:44 AM CDT Screening examination for STD (sexually transmitted disease) SCREENING MAMMOGRAM BILATERAL W SAJAN Schedule Routine, Read Routine (OP Routine) 05/16/2024 12:46 PM ROLL SETTER Breast cancer screening by mammogram from Last 3 Months or Most Recently Relevant to Health Maintenance Results * TSH (10/29/2024 9:18 AM CDT) Thyroid Stimulating Hormone 2.75 0.30 - 4.20 mcIUnit/mL Blood 10/29/2024 9:18 AM CDT 10/29/2024 3:06 PM CDT Saira KATE LAB BLOOD ORDERABLES Final Result Performing Organization Address City/State/[facility] Phone Number [facility] [address] Department [place] [address] * SURESWAB(R), CT/NG, T VAGINALIS (10/23/2024 8:55 AM CDT) Pathologist [facility] C. trachomatis RNA NOT DETECTED NOT DETECTED [facility] N. gonorrhoeae RNA NOT DETECTED NOT DETECTED [facility] Comment [facility] Comment: The analytical performance characteristics of this assay, when used to test SurePath(TM) specimens have been determined by [facility]. The modifications have not been cleared or approved by the FDA. This assay has been validated pursuant to the CLIA regulations and is used for clinical purposes. For additional information, please refer to https://education.[employer].FileThis/faq/UTO264 (This link is being provided for information/ educational purposes only.) Trichomonas vaginalis NOT DETECTED NOT DETECTED [facility] Comment: For additional information, please refer to http://education.[employer].FileThis/ faq/Trichomonastma (This link is being provided for informational/ educational purposes only.) Endocervical/vag inal 10/23/2024 8:55 AM CDT 10/24/2024 4:48 AM CDT Saira KATE LAB BLOOD ORDERABLES Final Result MICHAEL [facility] [address] [address] [phone] * Pap and HPV, reflex to HPV Genotypes (10/23/2024 8:38 AM CDT) CLINICAL INFORMATION: [facility] Comment:CERVICAL CANCER SCRE ENING LMP [facility] Comment:OCTOBER [address] [facility] Comment:NONE GIVEN Prev. Bx [facility] Comment:NONE GIVEN SOURCE: [facility] Comment:Cervix, Endocervix Pap, specimen adequacy [facility] Comment: Satisfactory for evaluation. Endocervical/transformation zone component present. HPV interp [facility] Comment: Cytology Results: Negative for intraepithelial lesion or malignancy. COMMENTS [facility] Comment: This Pap test has been evaluated with the ThinPrep(R) Imaging System. Territory Account Manager Que [facility] Comment: LMT, CT(ASCP) CT Screening Location: [place] [address] [place] [address] CLIA: [id number] Slide preparation performed at: [facility], [address] [place] [address], [address] CLIA: [id number] Comment [facility] Comment: EXPLANATORY NOTE: The Pap is a screening test for cervical cancer. It is not a diagnostic test and is subject to false negative and false positive results. It is most reliable when a satisfactory sample, regularly obtained, is submitted with relevant clinical findings and history, and when the Pap result is evaluated along with historic and current clinical information. Human papillomavirus DNA, High Risk E6/E7 Not Detected NOT DETECTED [facility] Comment: Not Detected High Risk HPV types (16,18,31,33,35,39,45,51,52, 56,58,59,66,68) were not detected. Other HPV types which cause anogenital lesions may be present. The significance of the other types of HPV in malignant processes has not been established. Methodology: Real Time PCR Thin prep-Endocervica l 10/23/2024 8:38 AM CDT 10/24/2024 6:14 PM CDT Saira KATE LAB CYTOLOGY ORDERABLES Fi nal Result [facility] [address] [place] [address] [facility] [address] [place] [address] * Hepatitis panel, acute Blood (08/03/2024 8:44 AM CDT) Hep A IgM Nonreactive Nonreactive Comment: Interpretive Data: If Hep A IgM Ab is reported as Equivocal, a new sample should be drawn in two weeks for testing. Current interpretive data was last revised on 19. Hep B core IgM Nonreactive Nonreactive [facility] Comment: Interpretive Data If HepB Core IgM [...] last revised on 2019. HepBsAg Nonreactive Nonreactive [facility] Blood 08/03/2024 8:44 AM CDT 08/03/2024 7:16 PM CDT Saira KATE LAB MICROBIOLOGY - GENERAL ORDERABLES Final Result [facility] [address] Department [place] [address] * Screening Mammogram Bilateral W Sajan (05/16/2024 12:46 PM ROLL SETTER) Anatomical Region Laterality Modality Breast Bilateral Mammography Impressions 05/16/2024 12:56 PM ROLL SETTER BI-RADS ATLAS category (overall): 2 - Benign There is no mammographic evidence of malignancy. A 1 year screening mammogram is recommended. The patient has been or will be contacted. We recommend annual screening mammography for women at average risk of breast cancer beginning at age 40, based on guidelines of the [employer] (ACR Practice Parameter for the Performance of Screening and Diagnostic Mammography) and [employer]. For women with and elevated risk of breast cancer, please refer to the ACR Practice Parameter for specific screening recommendations. The patient will be entered into a reminder system with a target due date of 1 year for her next screening exam. Narrative 05/16/2024 12:56 PM ROLL SETTER Screening Mammogram Bilateral W Sajan: 05/16/24 The [...] Saira KATE IMG MAMMO PROCEDURES Final Result from Last 3 Months or Most Recently Relevant to Health Maintenance Insurance [facility] C[facility] Care Teams Flying Ii Instructor Relationship Specialty Start Date End Date Saira Doty PA [address] [place] [address] PCP - General Internal Medicine 07/17/19 Wai Ozuna MD [address] [place] [id number] 07/17/19
--- OUTSIDE RECORDS SUMMARY | 2025-01-21 11:37 | XMS_ITS | Clinical Summary ---
Author Organization [facility] Address [address] [place] [address] Care Team Providers Care Weekend Receptionist Name Role Phone Saira Doty PA-C Primary Care Provider [phone] Source Comments [facility],non-owned Affiliates and Associated Physician Practices is amultiple site organization consisting of ambulatory clinics and hospital sitesin [place], [place], [place] and [place]. This disclosure is being madepursuant to the Care Everywhere program and may not contain all information available regarding this patient. Last updated [employer] 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 Gender Identity Not on file Sexual Orientation [...] 2 - PCV) 09/11/2006 PAP SMEAR 09/11/2008 HPV VACCINE (1 - 3-dose SCDM series) 09/11/2014 DEPRESSION SCREENING 04/04/2024 COVID-19 VACCINE (3 - 2024- season) 2024 11/27/2020, 10/28/2020 INFLUENZA VACCINE (#1) 2024 3, 01/02/2022, 01/03/2020 ZOSTER VACCINE (1 of 2) 09/11/2037 HIB VACCINE Aged Out No longer eligi ble based on patient's age to complete this topic MENINGOCOCCAL (Group B) VACCINE SHARED DECISION-MAKING Aged Out No longer eligible based on patient's age to complete this topic MENINGOCOCCAL GROUPS A/C/Y/W VACCINE Aged Out No longer eligible based on patient's age to complete this topic Insurance [facility] Advance Directives * Full Code (Latest Code Status on File) Date Activated Date Inactivated Comments 11/03/2023 10:50 AM 11/04/2023 7:10 PM Care Teams Weekend Receptionist Relationship Specialty Start Date End Date Saira Doty PA-C [address] [address] PCP - General Physician Category Director 10/14/23
== END 2025-01-21 10:05 | disposition home or self-care (01) ==
LOC: ANHFOHIMG 10:05
PROVIDERS: PCP Physician Assistant; Visit Provider Surgery
DX: N61.1 Abscess of the breast and nipple (principal)
CPT/HCPCS: 76642